=== PATIENT | female | born 2000 | race Caucasian/White ===

== ENCOUNTER 2019-07-21 16:32 | Emergency (ER) | payer SELFPAY ==
[2019-07-21 16:51] VITALS: BP 152/99; PULSE 85; RESP 16; TEMP 36.9; O2SAT 99; BMI 33.6
--- NOTE | 2019-07-21 17:02 | ED_ITS ---
Entered by Earline Jensen, acting as scribe for Wimlan Ortega MD HPI - Wound/Laceration General: Chief Complaint: Wound/Laceration Stated Complaint: hand lac Time Seen by Provider: 07/21/19 17:02 History of Present Illness: HPI narrative: 19 yo female presents with laceration on her left thumb. Pt states that she was cutting a carrot and cut her thumb on accident. Has minimal pain. Onset (ago): hour(s) Place: home Patient tetanus UTD: No Context: accidental Associated symptoms: Reports no associated symptoms; Denies chills, fever(s), nausea or vomiting Review of Systems Const: Denies: fever, chills, body aches or change in appetite Eyes: Denies: blurry vision or eye discomfort ENMT: Denies: throat pain or dental pain Card: Denies: chest pain Resp: Denies: shortness of breath GI: Denies: abdominal pain, nausea, vomiting or diarrhea : Denies: painful urination Musc: Denies: neck pain or back pain Skin/Breast: Denies: rash Neuro: Denies: headache Psych: Denies: depression Darin/Lymph: Denies: easy bruising All/Imm: Denies: hives PFSH ED PFSH: Social History Smoking and tobacco status: never smoked Physical Exam Const: COMMON NORMALS: no apparent distress, oriented x3 and healthy appearing HENMT: COMMON NORMALS: normocephalic and head/scalp atraumatic HEAD & SCALP: normocephalic and atraumatic Eye: COMMON NORMALS: PERRL and EOMs intact bilaterally PUPIL: Yes PERRL Neck/C-Spine: COMMON NORMALS: full ROM and supple Chest: COMMONS NORMALS: inspection of chest normal and palpation of chest normal Resp: COMMON NORMALS: normal respiratory effort, no retractions, no use of accessory muscles and clear to auscultation bilaterally AUSCULTATION: clear to auscultation bilaterally Cardio: COMMON NORMALS: regular rate, regular rhythm and no murmurs RATE: regular rate RHYTHM: regular rhythm GI: COMMON NORMALS: normal to inspection, nondistended, normoactive bowel sounds, soft to palpation, non-tender and no masses PALPATION: Yes soft Extremity: COMMON NORMALS: normal to inspection and full ROM RIGHT UPPER EXTREMITY: Yes hand & digits (1 cm laceration to the tip of left thumb) Neuro: COMMON NORMALS: oriented x3, moves all extremities and no focal motor deficits Psych: COMMON NORMALS: mental status grossly normal, thought process normal and cooperative THOUGHT PROCESS: normal thought process Skin: COMMON NORMALS: no rashes or lesions noted and no wounds GENERAL SKIN EXAM: no rashes or lesions noted Procedures Laceration Laceration 1: Site: upper extremity Side (If applicable): right Size (cm): 1 Description: linear Depth: simple, single layer Pre-repair: wound explored and irrigated extensively Skin layer closed with: other (dermabond) Course Vital Signs: Vital signs: Vital Signs Temperature 98.5 F 07/21/19 16:51 Pulse Rate 85 07/21/19 16:51 Respiratory Rate 16 07/21/19 16:51 Blood Pressure 152/99 07/21/19 16:51 Pulse Oximetry 99 07/21/19 16:51 MDM - Wound/Laceration MDM Narrative: Medical decision making narrative: Patient presents here with a laceration to the tip of her thumb. Laceration was superficial nature and repaired with tissue adhesive. Patient given tetanus here. Patient is stable for discharge and is to return if worsening. Discharge Plan Discharge Patient Disposition: Home, Self-Care Clinical Impression: Laceration Condition: Stable Prescriptions: No Action No Known Home Medications RF: 0 Discharge Orders: Discharge Order (Routine); Ordered 07/21/19 Ordered By: Wilman Ortega Referrals: Melvin Hancock DO [Family Provider] - Paulina Cedeno DO [Primary Care Provider] - 4-7 days Discharge Diet: Advance as tolerated Discharge Activity: Resume usual activity Patient Instructions: Skin Adhesive Care (ED) Coding Level of Care Code ED Life Support Technician for Chg Fwd Exam Comprehensive The documentation recorded by the Mikey vila Kialy, accurately reflects the service I personally performed and the decisions made by Jordan trinidad Korby, MD Jul 21, 2019 16:32
[2019-07-21] MEDS: tetanus-dipt-pertussis 0.5 mL SDV IM (17:24)
[2019-07-21 18:01] VITALS: BP 140/90; PULSE 80; RESP 16; TEMP 36.8; O2SAT 99
== END 2019-07-21 17:30 | disposition home or self-care (01) ==
PROVIDERS: Emergency Provider Emergency Medicine; Family Provider Family Medicine; PCP Family Medicine
DX: S61.012A Laceration without foreign body of left thumb without damage to nail, initial encounter (principal); X58.XXXA Exposure to other specified factors, initial encounter
CPT/HCPCS: 12001; 90471; 90715; 99281; 99282

== ENCOUNTER → 2019-08-14 17:39 | Outpatient (BNVA) | payer SELFPAY | PROVIDERS: Family Provider Family Medicine; PCP Family Medicine; Visit Provider Family Medicine | DX: R50.9 Fever, unspecified (principal) | CPT/HCPCS: 87400 ==

== ENCOUNTER 2020-04-07 04:29 | Emergency (ER) | payer SELFPAY ==
[2020-04-07 04:34] VITALS: BP 132/89; PULSE 129; RESP 16; TEMP 36.8; O2SAT 98; BMI 31.5
--- NOTE | 2020-04-07 04:34 | XRR_ITS ---
PROCEDURE INFORMATION: Exam: XR Right Ankle Exam date and time: 04/07/2020 4:51 AM Age: 20 years old Clinical indication: Injury or trauma; Fall; Sprain or strain; Ankle; Right; Additional info: Fall/injury TECHNIQUE: Imaging protocol: XR Right ankle. Views: 3 or more views. COMPARISON: No relevant prior studies available. FINDINGS: Bones/joints: Normal. Soft tissues: Lateral malleolar soft tissue swelling. XR/XR ankle RT min 3V* [id number] IMPRESSION: No fracture.
--- NOTE | 2020-04-07 04:34 | XRR_ITS ---
PROCEDURE INFORMATION: Exam: XR Right Foot Complete Exam date and time: 04/07/2020 4:51 AM Age: 20 years old Clinical indication: Injury or trauma; Fall; Blunt trauma; Foot; Right; Additional info: Fall/injury TECHNIQUE: Imaging protocol: XR Right foot. Views: 3 or more views. COMPARISON: No relevant prior studies available. FINDINGS: Bones/joints: Normal. Soft tissues: Normal. XR/XR foot RT min 3V* [id number] IMPRESSION: No acute findings.
--- NOTE | 2020-04-07 04:34 | XRR_ITS ---
PROCEDURE INFORMATION: Exam: XR Right Tibia and Fibula Exam date and time: 04/07/2020 4:52 AM Age: 20 years old Clinical indication: Injury or trauma; Fall; Blunt trauma; Lower leg; Right; Additional info: Fall/injury TECHNIQUE: Imaging protocol: XR Right tibia and fibula. Views: 2 views. COMPARISON: No relevant prior studies available. FINDINGS: Bones/joints: Normal. Soft tissues: Normal. XR/XR tibia fibula RT 2V [id number] IMPRESSION: No acute findings.
--- NOTE | 2020-04-07 04:37 | W.ED.GENADLT ---
HPI - General Adult General: Chief complaint: Extremity Injury, Lower Stated complaint: extremity injury, right ankle Time Seen by Provider: 04/07/20 04:31 Source: patient Mode of arrival: ambulatory Limitations: no limitations History of Present Illness: HPI narrative: Nicole is a 20-year-old female who comes in after she fell off her porch twisting her right ankle. She has pain primarily at the lateral malleolus that occasionally radiates up her leg and down to end her foot. She denies any distal numbness, tingling or weakness. She has increased pain when she bears weight. She denies any other injuries. Review of Systems Musc: Reports: extremity pain and joint pain PFSH ED PFSH: Medical History No pertinent past medical history Social History Smoking and tobacco status: never smoked Alcohol intake: never History of recent travel: No Physical Exam Extremity: NARRATIVE EXTREMITY EXAM: Mild swelling over the right lateral malleolus. Neurovascular intact distal. Course Vital Signs: Vital signs: Vital Signs Temperature 98.2 F 04/07/20 04:34 Pulse Rate 129 H 04/07/20 04:34 Respiratory Rate 16 04/07/20 04:34 Blood Pressure 132/89 04/07/20 04:34 Pulse Oximetry 98 04/07/20 04:34 MDM - General Adult MDM Narrative: Medical decision making narrative: Medicines 20-year-old female comes in with right ankle strain. Her x-rays to me look like she could have a Lisfranc injury so I am going to make her nonweightbearing and put her in a splint. I have informed the patient she is to follow-up with Dr. Lui for definitive care. She understands this and will follow-up as directed. Imaging Data^: XR right tib/fib: Attestation: I personally reviewed and interpreted this imaging study as follows: My impression: No acute fractures or dislocations XR right ankle: Attestation: I personally reviewed and interpreted this imaging study as follows: My impression: No acute fractures dislocations XR right foot: Attestation: I personally reviewed and interpreted this imaging study as follows: My impression: No acute fractures or dislocations Discharge Plan Discharge Patient Disposition: Home Clinical Impression: Ankle sprain and strain Right foot strain Qualifiers: Encounter type: initial encounter Qualified Code(s): S96.911A - Strain of unspecified muscle and tendon at ankle and foot level, right foot, initial encounter Condition: Stable Prescriptions: No Action No Known Home Medications RF: 0 Discharge Orders: Discharge Order (Routine); Ordered 04/07/20 Ordered By: Crystal Sams Referrals: Melvin Hancock DO [Family Provider] - Lucy Mojica MD [Physician] - 1-3 days Paulina Cedeno DO [Primary Care Provider] - Discharge Diet: Usual diet Discharge Activity: Limit activity as instructed Patient Instructions: Ankle Sprain (ED) Activity Restrictions/Additional Instructions: Please return to the ER immediately for any of the signs or symptoms listed on your discharge instruction sheets, worsening/changing of your symptoms, you are not getting better as quickly as expected, or for ANY other cause or concerns. Use your crutches and use your splint at all times until instructed further by Dr. Lui. Take Tylenol Motrin as needed for pain. Do not bear any weight on your foot or ankle until cleared by Dr. Lui. Coding Level of Care Code ED Electron Beam Operator for Paola Torres
[2020-04-07] MEDS: ibuprofen 200 mg Tablet 400 MG PO (05:04)
[2020-04-07 05:05] VITALS: BP 123/94; PULSE 114; PULSE 123; RESP 19; O2SAT 98
[2020-04-07] MEDS: ondansetron 4 MG Tablet 8 MG PO (05:43)
[2020-04-07] MEDS: acetaminophen 500 mg Tablet 1000 MG PO (05:44)
[2020-04-07 06:23] VITALS: BP 121/85; PULSE 98; O2SAT 99
== END 2020-04-07 06:23 | disposition home or self-care (01) ==
PROVIDERS: Emergency Provider Emergency Medicine; Family Provider Family Medicine; PCP Family Medicine
DX: S96.911A Strain of unspecified muscle and tendon at ankle and foot level, right foot, initial encounter (principal); S93.401A Sprain of unspecified ligament of right ankle, initial encounter; X50.1XXA Overexertion from prolonged static or awkward postures, initial encounter
CPT/HCPCS: 12345; 29515; 73590; 73610; 73630; 99281; 99283; E0114; Q0162

== ENCOUNTER 2020-04-11 10:56 | Outpatient (CLI) | payer SELFPAY | END 2020-04-11 10:57 | disposition home or self-care (01) | LOC: SPT 10:59 | PROVIDERS: Family Provider Family Medicine; PCP Family Medicine; Visit Provider Podiatrist Foot & Ankle Surgery | DX: Z46.89 Encounter for fitting and adjustment of other specified devices (principal); S93.409D Sprain of unspecified ligament of unspecified ankle, subsequent encounter; X58.XXXD Exposure to other specified factors, subsequent encounter | CPT/HCPCS: L4361 ==

== ENCOUNTER 2020-04-21 07:53 | Emergency (ER) | payer SELFPAY ==
[2020-04-21 08:01] VITALS: BP 142/108; PULSE 80; RESP 15; TEMP 36.4; O2SAT 97; BMI 31.5
--- NOTE | 2020-04-21 08:02 | XRR_ITS ---
PROCEDURE INFORMATION: Exam: XR Left Foot Complete Exam date and time: 04/21/2020 8:03 AM Age: 20 years old Clinical indication: Pain; Foot; Left TECHNIQUE: Imaging protocol: XR Left foot. Views: 3 or more views. COMPARISON: No relevant prior studies available. FINDINGS: Bones/joints: Normal. Soft tissues: Normal. XR/XR foot LT min 3V* [id number] IMPRESSION: No acute findings.
--- NOTE | 2020-04-21 08:02 | XRR_ITS ---
PROCEDURE INFORMATION: Exam: XR Left Ankle Exam date and time: 04/21/2020 8:03 AM Age: 20 years old Clinical indication: Pain; Ankle; Left TECHNIQUE: Imaging protocol: XR Left ankle. Views: 3 or more views. COMPARISON: No relevant prior studies available. FINDINGS: Bones/joints: Normal. Soft tissues: There is mild soft tissue swelling over the lateral aspect but this has decreased since previous examination.. XR/XR ankle LT min 3V* [id number] IMPRESSION: No acute findings.
--- NOTE | 2020-04-21 08:14 | ED_ITS ---
HPI - Extremity Problem General: Chief complaint: Extremity Injury, Lower Stated complaint: Left ankle pain w/o known [place] Time Seen by Provider: 04/21/20 08:00 Source: patient Mode of arrival: ambulatory Limitations: no limitations History of Present Illness: HPI Narrative: Nicole is a nice 20-year-old female who comes in complaining of left foot and ankle pain. Patient states that she felt fine but then when she went to get up out of bed this morning she had sudden onset of pain in her medial left foot that radiates up into her ankle. Patient is unaware of any definitive injury other than it just hurt when she stepped down today. She is able to bear weight and ambulate although with pain. Patient denies any distal numbness or weakness of her ankle. She has full range of motion of her ankle and foot although with mild pain. There is been no swelling, redness of the skin or other problem that she is aware of. Associated symptoms: Deny chest pain, fever(s) or rash Review of Systems Const: Denies: fever(s), chills, body aches, fatigue, malaise or diaphoresis Eyes: Denies: change in vision, blurry vision, photophobia, eye discomfort, eye discharge, eye redness or yellow eyes ENMT: Denies: throat pain, odynophagia, hoarseness, swelling of lips/tongue, ear or mastoid pain, ear discharge, change in hearing or nasal discharge Card: Denies: chest pain, palpitations, irregular heart rhythm, edema, lightheadedness, syncope, pre-syncope, dyspnea on exertion or orthopnea Resp: Denies: dyspnea, productive cough, non-productive cough, wheezing, hemoptysis or chest congestion GI: Denies: abdominal pain, nausea, vomiting, hematemesis, coffee ground emesis, heartburn, diarrhea, constipation, GI cramping, hematochezia or melena : Denies: flank pain, dysuria, urinary frequency, urinary urgency or hematuria Musc: Reports: extremity pain and joint pain Skin/Breast: Denies: rash, pruritus, erythema, skin pain or skin tenderness Neuro: Denies: headache(s), numbness in extremities, weakness in extremities, sensory changes, lack of coordination, difficulty walking, dizziness, vertigo, confusion, Slurred speech present or seizure-like activity Darin/Lymph: Denies: easy bruising, easy bleeding, petechiae, purpura or enlarged lymph nodes All/Imm: Denies: urticaria, throat swelling, tongue swelling, facial swelling or acute wheezing PFSH ED PFSH: Medical History (Updated 04/21/20 @ 09:12 by Crystal Sams) No pertinent past medical history Social History Smoking and tobacco status: never smoked Alcohol intake: never History of recent travel: No Physical Exam Const: COMMON NORMALS: no acute distress, patient oriented x3, no limitations and alert GENERAL APPEARANCE: cooperative HENMT: COMMON NORMALS: normocephalic, atraumatic, external ears normal, EAC's normal and Normal external nose present HEAD & SCALP: normal to inspection, normocephalic and atraumatic FACE & SINUS: normal facial exam and face symmetric NOSE: Normal external nose present and Normal nares present EXTERNAL EAR: Yes external ears normal EXTERNAL AUDITORY CANAL: EAC's normal MOUTH: Normal oral and palatal mucosa present, lip normal and tongue normal Eye: COMMON NORMALS: Equal, round and reactive pupils present and conjunctivae normal GENERAL EYE: appearance normal, both eyes and all related structures ALIGNMENT: Yes alignment normal PERIORBITAL: periorbital findings normal EYELID: eyelids normal CONJUNCTIVA: Yes conjunctivae normal SCLERA: sclerae normal PUPIL: Yes Equal, round and reactive pupils present Neck/C-Spine: COMMON NORMALS: full ROM, no lymphadenopathy, supple, no meningeal signs and no JVD GENERAL: Yes normal visual inspection and Yes trachea midline Chest: COMMONS NORMALS: normal inspection of the chest and normal palpation of entire chest wall Resp: COMMON NORMALS: normal respiratory effort, No retractions, No use of accessory muscles and clear to auscultation bilaterally EFFORT & INSPECTION: Yes able to speak in complete sentences and Yes symmetric chest movement AUSCULTATION: clear to auscultation bilaterally, no crackles, no rales, no rhonchi and no wheezes Cardio: COMMON NORMALS: no JVD, regular rate, regular rhythm, S1 normal heart sound present and S2 normal heart sound present RATE: regular rate RHYTHM: regular rhythm HEART SOUNDS: S1 normal heart sound present, S2 normal heart sound present, no click, no gallops, no murmurs and no rubs GI: COMMON NORMALS: Soft to palpation and No hepatosplenomegaly present PALPATION: Yes Soft to palpation, No Tenderness to palpation present (GI), No Guarding due to palpation present (GI), No Rigid due to palpation, Yes No hepatosplenomegaly present, No Hernia present, No Palpable mass present and No Pulsatile mass present : COMMON NORMALS: Yes no CVA tenderness BLADDER/KIDNEY EXAM: Yes no CVA tenderness EXTERNAL FEMALE EXAM: No Hernia present Back/Pelvis: COMMON NORMALS: no CVA tenderness, thoracic and lumbar spine normal to inspection, no thoracic nor lumbar tenderness and thoraco-lumbar ROM normal Extremity: NARRATIVE EXTREMITY EXAM: Left foot and ankle without swelling, erythema or warmth to the touch. Strong dorsalis pedis and posterior tibial pulse to the left foot and ankle. Capillary refill is normal. Pain seems to be more focal along the medial foot. Full range of motion of the ankle with a normal Achilles mechanism. Remainder of patient's musculoskeletal exam is unremarkable. Right foot and ankle were not examined as they are in a cam walker. Neuro: COMMON NORMALS: patient oriented x3, CN's II-XII intact bilaterally, moves all extremities, no focal motor deficits and no sensory deficits noted SENSORIUM/ORIENTATION: Yes alert MENINGEAL SIGNS: Yes no meningeal signs SPEECH: speech normal Psych: COMMON NORMALS: mental status grossly normal, Normal thought process present, cooperative, normal affect, speech normal and activity/motor behavior normal SPEECH: Yes normal speech THOUGHT PROCESS: Normal thought process present Skin: COMMON NORMALS: no rashes or lesions noted, turgor normal, no jaundice, no petechiae and no mottling GENERAL SKIN EXAM: no rashes or lesions noted and turgor normal Course Vital Signs: Vital signs: Vital Signs Temperature 97.6 F 04/21/20 08:01 Pulse Rate 80 04/21/20 08:01 Respiratory Rate 15 04/21/20 08:01 Blood Pressure 142/108 04/21/20 08:01 Pulse Oximetry 97 04/21/20 08:01 MDM - Extremity (Nontraumatic) MDM Narrative: Medical decision making narrative: Patient describes most of her pain is in the Achilles tendon area of her foot. I do not palpate a sig nificant deficit. With Sierra's testing squeezing her calf causes normal plantar flexion of the foot and ankle. I reviewed the case in full with Dr. Loaiza who believes the patient will need to be placed in a posterior splint, made nonweightbearing, use her crutches and follow-up with Dr. Simons for further care. I have reviewed all this plan with the patient and she is in agreement. Imaging Data^: XR Left Ankle: Attestation: I personally reviewed and interpreted this imaging study as follows: My impression: No acute fractures dislocations XR Left Foot: Attestation: I personally reviewed and interpreted this imaging study as follows: My impression: No acute fractures or dislocations Discharge Plan Discharge Patient Disposition: Home Clinical Impression: Strain of Achilles tendon Qualifiers: Encounter type: initial encounter Laterality: left Qualified Code(s): S86.012A - Strain of left Achilles tendon, initial encounter Condition: Stable Prescriptions: No Action hydrocodone-acetaminophen [[place]] 5-325 mg tablet 1 tab PO Q6H PRN (Reason: pain) 7 Days Qty: 14 RF: 0 (DME) cam boot See Rx Instructions .Route .MEDSUPPLY Qty: 1 RF: 0 Discharge Orders: Discharge Order (Routine); Ordered 04/21/20 Ordered By: Crystal Sams Referrals: Jamie Loaiza DO [Physician] - 1-3 days Gregorio Simons DPM [Physician] - 1-3 days Paulina Cedeno DO [Primary Care Provider] - Discharge Diet: Advance as tolerated Discharge Activity: Use walker/crutches as instructed Patient Instructions: Ankle Sprain (ED), Achilles Tendon Rupture (ED), Achilles Tendinitis (ED) Activity Restrictions/Additional Instructions: Please return to the ER immediately for any of the signs or symptoms listed on your discharge instruction sheets, worsening/changing of your symptoms, you are not getting better as quickly as expected, or for ANY other cause or concerns. Use your crutches at all times and do not bear weight on your left foot or ankle. Continue the pain medication you already have at home for pain. You can follow-up with Dr. Loaiza or you can follow-up with Dr. Simons who you have already established with us he can care for this injury as well. Coding Level of Care Code ED Marketing Communications Specialist for dorie Fwd Exam Comprehensive
--- NOTE | 2020-04-21 09:57 | PC.NURSE ---
Visitor complained that nobody asked her about her pain . Patient asked rate pain on 0-10 pain scale. Patient states I'm fine . Patient offered medication for pain. She refused.
== END 2020-04-21 10:05 | disposition home or self-care (01) ==
PROVIDERS: Emergency Provider Emergency Medicine; PCP Family Medicine
DX: S86.012A Strain of left Achilles tendon, initial encounter (principal); X58.XXXA Exposure to other specified factors, initial encounter
CPT/HCPCS: 12345; 29515; 73610; 73630; 99283; E0114

== ENCOUNTER 2020-09-02 06:21 | Emergency (ER) | payer SELFPAY ==
[2020-09-02 06:24] VITALS: BP 146/82; PULSE 83; RESP 16; TEMP 36.9; O2SAT 98; BMI 29.8
--- NOTE | 2020-09-02 06:34 | ED_ITS ---
HPI - Extremity Problem General: Chief complaint: Extremity Injury, Upper Stated complaint: r hand injury Time Seen by Provider: 09/02/20 06:33 History of Present Illness: HPI Narrative: 20-year-old female presents emergency room with complaint of right hand pain. She smashed her hand in a door last evening. She has a bruising on the dorsum of the right hand is hesitant to flex her fingers. She denies any other injuries. There are some moderate swelling but no obvious deformity. MD Complaint: extremity pain and extremity swelling Onset (ago): hour(s) Pain Consistency: constant Location: right and upper extremity (Hand metacarpals) Quality: aching Radiation: none Relieving factors: immobilization and rest Exacerbating factors: range of motion and palpation Associated symptoms: Reports no associated symptoms; Deny arthralgias, chest pain, fever(s), myalgias, rash or short of breath Review of Systems Const: Denies: fever(s) ENMT: Denies: throat pain, ear or mastoid pain, nasal discharge or nasal congestion Card: Denies: chest pain Resp: Denies: dyspnea, productive cough or non-productive cough GI: Denies: abdominal pain, nausea, vomiting, diarrhea or constipation : Denies: flank pain, difficulty voiding, dysuria, urinary frequency or urinary urgency Skin/Breast: Denies: rash PFSH ED PFSH: Medical History (Updated 09/02/20 @ 06:48 by Melvin Hancock DO) No pertinent past medical history Social History Smoking and tobacco status: never smoked Alcohol intake: never History of recent travel: No Physical Exam Const: COMMON NORMALS: no acute distress GENERAL APPEARANCE: cooperative and comfortable ORIENTATION/CONSCIOUSNESS: Yes awake, Yes oriented to person, Yes oriented to place and Yes oriented to time HENMT: COMMON NORMALS: normocephalic, atraumatic and hearing grossly normal bilaterally HEAD & SCALP: normocephalic and atraumatic Neck/C-Spine: COMMON NORMALS: no JVD Resp: COMMON NORMALS: normal respiratory effort, No retractions, No use of ac cessory muscles and clear to auscultation bilaterally AUSCULTATION: clear to auscultation bilaterally Cardio: COMMON NORMALS: no JVD, regular rate, regular rhythm and No murmurs present (Cardio) RATE: regular rate RHYTHM: regular rhythm Extremity: NARRATIVE EXTREMITY EXAM: 2 inch round area of swelling and ecchymosis on dorsum of the right hand. 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 Radial and ulnar pulses are normal good capillary refill there is no obvious deformity no crepitus on light palpation Neuro: SENSORIUM/ORIENTATION: Yes oriented to person, Yes oriented to place and Yes oriented to time Course Vital Signs: Vital signs: Vital Signs Temperature 98.4 F 09/02/20 06:24 Pulse Rate 83 09/02/20 06:24 Respiratory Rate 16 09/02/20 06:24 Blood Pressure 146/82 09/02/20 06:24 Pulse Oximetry 98 09/02/20 06:24 MDM - Extremity (Nontraumatic) MDM Narrative: Medical decision making narrative: No acute fractures. Ice [id number] anti-inflammatories increase activity as tolerated Discharge Plan Discharge Patient Disposition: Home Clinical Impression: Contusion of hand, right Condition: Stable Prescriptions: No Action hydrocodone-acetaminophen [[place]] 5-325 mg tablet 1 tab PO Q6H PRN (Reason: pain) 7 Days Qty: 14 RF: 0 (DME) cam boot See Rx Instructions .Route .MEDSUPPLY Qty: 1 RF: 0 Discharge Orders: Discharge ED (Routine); Ordered 09/02/20 Ordered By: Melvin Hancock Referrals: Paulina Cedeno DO [Primary Care Provider] - Patient Instructions: Opioid Safety Activity Restrictions/Additional Instructions: Ice to the affected hand. [id number] anti-inflammatories as needed increase activity as tolerated. Coding Level of Care Code ED Research Geologist for Lyndag Fwd Exam Detailed
--- NOTE | 2020-09-02 06:34 | XRR_ITS ---
PROCEDURE INFORMATION: Exam: XR Right Hand Exam date and time: 09/02/2020 6:36 AM Age: 20 years old Clinical indication: Pain and injury or trauma; Other: Smashed in medtal marta; Crushing; Hand; Right; Injury date: 09/01/20 TECHNIQUE: Imaging protocol: XR Right hand. Views: 3 or more views. COMPARISON: No relevant prior studies available. FINDINGS: Bones/joints: Normal. Soft tissues: Normal. XR/XR hand RT min 3V* [id number] IMPRESSION: No acute findings.
[2020-09-02 06:53] VITALS: BP 146/82; PULSE 78; RESP 16; TEMP 36.9; O2SAT 98
== END 2020-09-02 06:54 | disposition home or self-care (01) ==
PROVIDERS: Emergency Provider Family Medicine; PCP Family Medicine
DX: S60.221A Contusion of right hand, initial encounter (principal); W23.0XXA Caught, crushed, jammed, or pinched between moving objects, initial encounter
CPT/HCPCS: 73130; 99282

== ENCOUNTER 2020-11-21 11:20 | Inpatient (IN) | payer SELFPAY ==
[2020-11-21 11:31] VITALS: BP 165/103; PULSE 129; RESP 20; TEMP 36.5; O2SAT 94; BMI 31.1
--- NOTE | 2020-11-21 11:36 | ECG_ITS ---
[facility] Test Date: 2020-11-21 Pat Name: Nicole Terrazas Department: Room: Gender: Female Direct Marketing Coordinator: : 2000 Requested By: Raudel Aguilar Order Number: [id number] Thorne MD: Sophie Hill M.D. Measurements Intervals [place] Rate: 122 P: 24 GA: 142 QRS: -10 QRSD: 86 T: 10 QT: 338 QTc: 482 Interpretive Statements SINUS TACHYCARDIA VOLTAGE CRITERIA FOR LVH [MEETS CRITERIA IN ONE OF: R(aVL), S(V1), R(V5), R(V5/V6)+S(V1)] No previous ECG available for comparison Electronically Signed On 11-22-2020 14:17:23 CDT by Sophie Hill M.D. [email or web address]
--- NOTE | 2020-11-21 11:38 | W.ED.PSYCH ---
HPI - Psych General: Chief Complaint: Psychiatric Symptoms Stated Complaint: MHE Time Seen by Provider: 11/21/20 11:28 History of Present Illness: HPI Narrative: The patient is a 20-year-old female with past medical history depression and history of cutting and burning herself. She says she feels like hurting herself today. She has made no attempt at doing so and has no current plan. She is tearful and sad. She says her mother called the police on her after she found her walking out on a highway. Admits alcohol use 12 hours ago complaint: suicidal ideation and feels depressed Duration: constant History of same: Yes Relieving factors: none Context: not taking psychiatric medications Associated psychiatric symptoms: depression and suicidal ideation Associated symptoms: Reports no associated symptoms, depression and suicidal ideation; Deny auditory hallucinations, visual hallucinations or homicidal ideation If self harm: admits thoughts of self harm Review of Systems General: Reports: 10 or more systems reviewed and unremarkable except in HPI and below Const: Denies: fatigue Eyes: Denies: change in vision, blurry vision or eye redness ENMT: Denies: throat pain, swelling of lips/tongue, ear or mastoid pain or nasal congestion Card: Denies: chest pain, palpitations, irregular heart rhythm, edema, dyspnea on exertion or orthopnea Resp: Denies: dyspnea, productive cough or non-productive cough GI: Denies: abdominal pain, diarrhea or GI cramping : Denies: flank pain, difficulty voiding, urinary frequency or urinary urgency Musc: Denies: neck pain, back pain, extremity pain, joint pain, joint redness, limited range of motion or muscle weakness Skin/Breast: Denies: rash, pruritus, erythema, skin pain or skin tenderness Neuro: Denies: headache(s), numbness in extremities, weakness in extremities, sensory changes, difficulty walking, dizziness, confusion or Slurred speech present Psych: Reports: depression and suicidal ideation; Denies: anxiety, visual hallucinations, auditory hallucinations or homicidal ideation Endo: Denies: polyuria All/Imm: Denies: urticaria, throat swelling or tongue swelling PFS ED PFSH: Medical History (Updated 11/21/20 @ 14:07 by Raudel Aguilar MD) No pertinent past medical history Social History Smoking and tobacco status: never smoked Alcohol intake: never History of recent travel: No Physical Exam Const: COMMON NORMALS: no acute distress, average body habitus, patient oriented x3, no limitations, healthy appearing, alert and well nourished GENERAL APPEARANCE: cooperative, comfortable, well kempt, well developed and anxious ORIENTATION/CONSCIOUSNESS: Yes awake, Yes oriented to person, Yes oriented to place and Yes oriented to time OTHER: Tearful HENMT: COMMON NORMALS: normocephalic, external ears normal and Normal external nose present HEAD & SCALP: normal to inspection and normocephalic NOSE: Normal external nose present EXTERNAL EAR: Yes external ears normal MOUTH: Normal oral and palatal mucosa present THROAT: posterior oropharynx normal Eye: COMMON NORMALS: Equal, round and reactive pupils present and EOMs intact bilaterally GENERAL EYE: appearance normal, both eyes and all related structures PUPIL: Yes Equal, round and reactive pupils present Neck/C-Spine: COMMON NORMALS: full ROM, no lymphadenopathy, no meningeal signs and no JVD GENERAL: Yes normal visual inspection Lymph: LYMPHATIC: no lymphadenopathy noted Chest: COMMONS NORMALS: normal inspection of the chest and normal palpation of entire chest wall Resp: COMMON NORMALS: normal respiratory effort, No retractions, No use of accessory muscles, clear to auscultation bilaterally and percussion normal EFFORT & INSPECTION: Yes able to speak in complete sentences AUSCULTATION: clear to auscultation bilaterally PERCUSSION: percussion normal Cardio: COMMON NORMALS: no JVD, regular rate, regular rhythm, S1 normal heart sound present, S2 normal heart sound present and Peripheral pulses 2+ throughout RATE: regular rate RHYTHM: regular rhythm HEART SOUNDS: S1 normal heart sound present and S2 normal heart sound present PERIPHERAL PULSES: Peripheral pulses 2+ throughout GI: COMMON NORMALS: Normal to inspection, nondistended, normoactive bowel sounds present, Soft to palpation, non-tender and no masses INSPECTION: Yes normal to inspection PALPATION: Yes Soft to palpation : COMMON NORMALS: Yes no CVA tenderness BLADDER/KIDNEY EXAM: Yes no CVA tenderness Back/Pelvis: COMMON NORMALS: no CVA tenderness, thoracic and lumbar spine normal to inspection, no thoracic nor lumbar tenderness and thoraco-lumbar ROM normal Extremity: COMMON NORMALS: normal to inspection, full ROM, capillary refill normal, no joint enlargement and no pedal edema GENERAL: Yes normal exam except as noted Neuro: COMMON NORMALS: patient oriented x3, CN's II-XII intact bilaterally, moves all extremities, no focal motor deficits, no sensory deficits noted and gait normal SENSORIUM/ORIENTATION: Yes alert, Yes oriented to person, Yes oriented to place and Yes oriented to time MENINGEAL SIGNS: Yes no meningeal signs Psych: COMMON NORMALS: mental status grossly normal, Normal thought process present, cooperative, normal affect and speech normal APPEARANCE: Yes well kempt ATTITUDE: Yes calm SPEECH: Yes normal speech MOOD & AFFECT: Yes depressed mood and Yes anxious THOUGHT PROCESS: Normal thought process present THOUGHT CONTENT: Yes Suicidality present INSIGHT: Poor insight present (Psych) JUDGEMENT: Poor judgement present (Psych) Skin: COMMON NORMALS: no rashes or lesions noted NARRATIVE SKIN EXAM: Patient has old scars from cutting herself to her left forearm. Approximately 20 in number GENERAL SKIN EXAM: no rashes or lesions noted Course Vital Signs: Vital signs: Vital Signs Temperature 97.7 F 11/21/20 11:31 Pulse Rate 102 H 11/21/20 13:55 Respiratory Rate 16 11/21/20 13:55 Blood Pressure 107/88 11/21/20 13:55 Pulse Oximetry 97 11/21/20 13:55 MDM - Psych MDM Narrative: Medical decision making narrative: The patient is suicidal. I wrote 96-hour papers on her. She also has ingested alcohol. Discussed with Dr. Fung who accepts to the Neuropsych Unit Lab Data: Labs: Lab Results 11/21/20 11/21/20 11/21/20 Range/Units 12:05 12:10 12:10 WBC 6.6 (4.0-10.0) 10^3/ uL RBC 4.50 (4.1-5.3) 10^6/u L Hgb 13.9 (11.5-15.3) g/dL Hct 41.7 (37.0-47.0) % MCV 92.7 (81-99) fL MCH 30.9 (28.0-34.0) pg MCHC 33.3 (30.0-36.0) g/dL RDW 11.8 L (12.1-15.1) % Plt Count 383 (130-400) 10^3/c mm MPV 9.4 (7.4-10.4) fL Neut % (Auto) 52.2 % Lymph % (Auto) 38.2 % [place] % (Auto) 7.7 % Eos % (Auto) 1.1 % Baso % (Auto) 0.6 % Neut # (Auto) 3.44 (1.8-7.7) 10^3/u L Lymph # (Auto) 2.5 (0.8-4.8) 10^3/u L [place] # (Auto) 0.5 (0.2-0.9) 10^3/u L Eos # (Auto) 0.1 (0.0-0.8) 10^3/u L Baso # (Auto) 0.0 (0.0-0.1) 10^3/u L Nucleated RBC % (a uto) 0 % Nucleated RBCs # 0.0 /100WBC Sodium 142 (136-145) mmol/L Potassium 4.1 (3.5-5.1) mmol/L Chloride 108 H (98-107) mmol/L Carbon Dioxide 22 (22-29) mmol/L Anion Gap 16.1 (5-19) BUN 15 (6-20) mg/dL Creatinine 0.6 (0.5-0.9) mg/dL GFR Calculation 126.2 (90-130) mL/min Glucose 106 (65-115) mg/dL Calculated Osmolal ity 295 (285-295) mOsm/k g Calcium 9.3 (8.5-10.5) mg/dL Total Bilirubin 0.3 (0.15-1.2) mg/dL AST 19 (0-32) U/L ALT 21 (0-33) U/L Alkaline Phosphata se 77 (35-105) IU/L Troponin T Baselin e (0-10) ng/L Total Protein 7.0 (6.6-8.7) g/dL Albumin 4.7 (3.5-5.2) g/dL Globulin 2.3 (1.3-4.6) g/dL TSH 1.74 (0.27-4.20) uIU/ mL HCG, Qual Negative (Negative) Urine Color (Yellow) Urine Appearance (CLEAR) Urine pH (5-7) Ur Specific Gravit y (1.005-1.030) Urine Protein (Negative) Urine Glucose (UA) (Normal) Urine Ketones (Negative) Urine Blood (Negative) Urine Nitrate (Negative) Urine Bilirubin (Negative) Urine Urobilinogen (Negative) mg/dL Ur Leukocyte Awa ase (Negative) Salicylates < 0.3 L (3-10) mg/dL Urine Opiates Scre en (Negative) ng/mL Acetaminophen < 5.0 L (10-30) ug/mL Ur Barbiturates Sc reen (Negative) ng/mL Ur Phencyclidine S crn (Negative) ng/mL Ur Amphetamines Sc reen (Negative) ng/mL U Benzodiazepines Scrn (Negative) ng/mL Urine Cocaine Scre en (Negative) ng/mL U Marijuana (THC) Screen (Negative) ng/mL Ethyl Alcohol 180 H (0-10) mg/dL 11/21/20 11/21/20 11/21/20 Range/Units 12:10 12:10 12:10 WBC (4.0-10.0) 10^3/ uL RBC (4.1-5.3) 10^6/u L Hgb (11.5-15.3) g/dL Hct (37.0-47.0) % MCV (81-99) fL MCH (28.0-34.0) pg MCHC (30.0-36.0) g/dL RDW (12.1-15.1) % Plt Count (130-400) 10^3/c mm MPV (7.4-10.4) fL Neut % (Auto) % Lymph % (Auto) % [place] % (Auto) % Eos % (Auto) % Baso % (Auto) % Neut # (Auto) (1.8-7.7) 10^3/u L Lymph # (Auto) (0.8-4.8) 10^3/u L [place] # (Auto) (0.2-0.9) 10^3/u L Eos # (Auto) (0.0-0.8) 10^3/u L Baso # (Auto) (0.0-0.1) 10^3/u L Nucleated RBC % (a uto) % Nucleated RBCs # /100WBC Sodium (136-145) mmol/L Potassium (3.5-5.1) mmol/L Chloride (98-107) mmol/L Carbon Dioxide (22-29) mmol/L Anion Gap (5-19) BUN (6-20) mg/dL Creatinine (0.5-0.9) mg/dL GFR Calculation (90-130) mL/min Glucose (65-115) mg/dL Calculated Osmolal ity (285-295) mOsm/k g Calcium (8.5-10.5) mg/dL Total Bilirubin (0.15-1.2) mg/dL AST (0-32) U/L ALT (0-33) U/L Alkaline Phosphata se (35-105) IU/L Troponin T Baselin e 6 (0-10) ng/L Total Protein (6.6-8.7) g/dL Albumin (3.5-5.2) g/dL Globulin (1.3-4.6) g/dL TSH (0.27-4.20) uIU/ mL HCG, Qual (Negative) Urine Color Straw (Yellow) Urine Appearance Clear (CLEAR) Urine pH 5 (5-7) Ur Specific Gravit y 1.020 (1.005-1.030) Urine Protein Trace (Negative) Urine Glucose (UA) Norm (Normal) Urine Ketones Negative (Negative) Urine Blood Neg (Negative) Urine Nitrate Negative (Negative) Urine Bilirubin Neg (Negative) Urine Urobilinogen Norm (Negative) mg/dL Ur Leukocyte Awa ase Negative (Negative) Salicylates (3-10) mg/dL Urine Opiates Scre en Positive H (Negative) ng/mL Acetaminophen (10-30) ug/mL Ur Barbiturates Sc reen Negative (Negative) ng/mL Ur Phencyclidine S crn Negative (Negative) ng/mL Ur Amphetamines Sc reen Negative (Negative) ng/mL U Benzodiazepines Scrn Positive H (Negative) ng/mL Urine Cocaine Scre en Negative (Negative) ng/mL U Marijuana (THC) Screen Positive H (Negative) ng/mL Ethyl Alcohol (0-10) mg/dL Discharge Plan Discharge Patient Disposition: Admitted As Inpatient Admit Provider: Hubert Fung Clinical Impression: Suicidal ideation Condition: Stable Coding Level of Care Code ED Whiting Machine Operator for Paola Fwd Exam Comprehensive
[2020-11-21] MEDS: LORazepam 0.5 mg Tablet PO (11:50)
[2020-11-21 12:15] LABS: Add Urine Microscopic? NO; Charge for UA Resulting for Rev
[2020-11-21 12:17] LABS: Basophils % 0.6 %; Eosinophils # 0.1 10^3/uL (0.0-0.8); Eosinophils % 1.1 %; Hematocrit 41.7 % (37.0-47.0); Hemoglobin 13.9 g/dL (11.5-15.3); Lymphocytes # 2.5 10^3/uL (0.8-4.8); Lymphocytes % 38.2 %; Mean Corpuscular HGB Conc 33.3 g/dL (30.0-36.0); Mean Corpuscular Hemoglobin 30.9 pg (28.0-34.0); Mean Corpuscular Volume 92.7 fL (81-99); Mean Platelet Volume 9.4 fL (7.4-10.4); Monocytes # 0.5 10^3/uL (0.2-0.9); Monocytes % 7.7 %; Neutrophils # 3.44 10^3/uL (1.8-7.7); Neutrophils % 52.2 %; Nucleated Red Blood Cells % 0 %; Platelet Count 383 10^3/cmm (130-400); Red Cell Distribution Width 11.8 % (12.1-15.1); White Blood Count 6.6 10^3/uL (4.0-10.0)
[2020-11-21 12:19] LABS: HCG Qualitative Urine. Negative (Negative)
--- NOTE | 2020-11-21 12:25 | PC.PHAR ---
pt states she takes care of her own medications-pt states she hasnt taken her prozac for 5-6 months ext med history shows last filled on 04/12/2020 30d/s
[2020-11-21 12:34] LABS: Amphetamines Screen Urine Negative (Negative); Barbiturates Screen Urine Negative (Negative); Benzodiazepines Screen Urine Positive (Negative); Bilirubin Urine Neg (Negative); Blood Urine Neg (Negative); Cocaine Screen Urine Negative (Negative); Glucose Urine UA Norm (Normal); Ketones Urine Negative (Negative); Leukocyte Esterase Urine Negative (Negative); Nitrate Urine Negative (Negative); Opiate Screen Urine Positive (Negative); PCP Screen Urine Negative (Negative); Protein Urine Trace (Negative); THC Screen Urine Positive (Negative); Urine Appearance Clear (CLEAR); Urine Color Straw (Yellow); Urobilinogen Urine Norm (Negative); pH Urine 5 (5-7)
[2020-11-21 12:40] VITALS: RESP 15
[2020-11-21 12:50] LABS: Troponin(5th) Baseline 6 ng/L (0-10)
[2020-11-21 12:56] LABS: Acetaminophen < 5.0 ug/mL (10-30); Alanine Aminotransferase 21 U/L (0-33); Albumin Level 4.7 g/dL (3.5-5.2); Alcohol Level 180 mg/dL (0-10); Alkaline Phosphatase 77 IU/L (35-105); Aspartate Amino Transferase 19 U/L (0-32); Blood Urea Nitrogen 15 mg/dL (6-20); Calcium 9.3 mg/dL (8.5-10.5); Carbon Dioxide 22 mmol/L (22-29); Chloride 108 mmol/L (98-107); Globulin 2.3 g/dL (1.3-4.6); Glomerular Filtration Rate 126.2 mL/min (90-130); Glucose 106 mg/dL (65-115); Osmolality Calculated 295 mOsm/kg (285-295); Salicylate < 0.3 mg/dL (3-10); Sodium 142 mmol/L (136-145); Thyroid Stimulating Hormone 1.74 uIU/mL (0.27-4.20); Total Bilirubin 0.3 mg/dL (0.15-1.2)
[2020-11-21 12:57] LABS: Anion Gap 16.1 (5-19); Potassium 4.1 mmol/L (3.5-5.1)
[2020-11-21 13:55] VITALS: BP 107/88; PULSE 102; RESP 16; O2SAT 97
[2020-11-21 14:17] VITALS: BP 126/74; PULSE 95; RESP 18; TEMP 37.1; O2SAT 96
--- NOTE | 2020-11-21 20:20 | PC.NURSE ---
behavior pt has isolated, then began to pace the halls, was redirected, distracted by a book to read, she is anxious, states, she has not seen a doctor, and wants to know why she is here. pt is wringing her shirt with her hands, has a look of fear on her face.pt comforted, educated, and seems less anxious, states, I don't want medication but can not account for days at a time, and says this has increased lately. Tearful and anxious
[2020-11-21 21:40] VITALS: BP 108/73; PULSE 89; RESP 17; TEMP 36.8; O2SAT 97
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
--- NOTE | 2020-11-22 01:17 | PC.NURSE ---
Addendum entered by Poonam Jacques RN 11/22/20 02:02: Pt is less anxious, putting a puzzle together, no longer tearful Original Note: Visteril Pt is anxious,tearful, crying, and physically shaking. Took the medication and informtion to the patient, allowed her to unwrap it, and compare it to information sheet provided, Pt took the medication, and decided she would like to shower. Visteril 50mg Po for anxiety administered.
--- NOTE | 2020-11-22 01:19 | PC.NURSE ---
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 She is upset about the 96hr hold and what that could mean for her career. Pt believes, She is in so much trouble, contacting her employer is necessary as soon as possible. [facility], [address] [address]
[2020-11-22 06:00] VITALS: BP 118/80; PULSE 60; RESP 16; TEMP 36.8; O2SAT 98
[2020-11-22] MEDS: acetaminophen 325 mg Tablet 650 MG PO ×3 (06:19→21:56)
--- NOTE | 2020-11-22 09:02 | PC.NURSE ---
contact added Added Mother to contact list. Manjit Fung has been added
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
--- NOTE | 2020-11-22 12:46 | PC.NURSE ---
prn ] 1233 administered 650 mg Tylenol for pt c/o pain 3/10 on pain scale. Will continue to monitor pt.
[2020-11-22] MEDS: ARIPiprazole 10 mg Tablet PO (13:13)
[2020-11-22 14:00] VITALS: BP 120/82; PULSE 66; RESP 18; TEMP 36; O2SAT 98
[2020-11-22 20:13] VITALS: RESP 16
[2020-11-22] MEDS: hyDROXYzine 25 mg Capsule 50 MG PO (21:38)
[2020-11-22] MEDS: OLANZapine 5 mg ODT PO (21:39)
--- NOTE | 2020-11-22 21:45 | PC.NURSE ---
Patient C/O anxiety R/T, AH. Vistaril 50mg PO given as well as Zyprexa 5mg PO.
[2020-11-23 06:00] VITALS: BP 127/87; PULSE 92; RESP 16; TEMP 36.8; O2SAT 99
[2020-11-23] MEDS: acetaminophen 325 mg Tablet 650 MG PO ×2 (06:20→10:50)
[2020-11-23] MEDS: ARIPiprazole 10 mg Tablet PO (09:47)
[2020-11-23 14:00] VITALS: BP 127/87; PULSE 92; RESP 16; TEMP 36.8; O2SAT 99
[2020-11-23 15:31] VITALS: BP 127/85; PULSE 62; RESP 16; TEMP 36.6; O2SAT 99
--- NOTE | 2020-11-23 17:43 | P.PN_ITS ---
Subjective NPU Subjective: Interval history: Medicine presents today reporting that she is feeling a little bit better as she got a great night sleep last night. She had a as needed Zyprexa which she reports allow her to sleep 8 hours. We discussed the fact that Zyprexa can have that positive impact on people we discussed the differences between it and the Abilify she is taking. She was meeting with her sister and we discussed the 96-hour hold process and the possibility of her being discharged prior to when the 96-hour hold is up. That relieved a lot of concerns and she was optimistic about feeling better with continued treatment. Mental Status Exam MSE Comments: This is an obese white female in hospital scrubs with adequate grooming and eye contact. No abnormal movements except for mild psychomotor retardation. Cooperative with exam in no acute distress. Speech was decreased rate and volume. Mood described as I am feeling a little more optimistic, affect subdued. Thought process organized. Thought content: Patient denied suicidal or homicidal ideation, there were no delusions reported or noted, she endorsed some visual hallucinations but denied current auditory hallucinations. Attention and concentration appeared intact and memory was mostly reliable but none were formally tested. She is alert and oriented x3. Insight and judgment are fair and impulse control is limited. Vitals/I&O/Wt Last Vital Signs Temp 97.8 F 11/23/20 15:31 Pulse 62 11/23/20 15:31 Resp 16 11/23/20 15:31 BP 127/85 11/23/20 15:31 Pulse Ox 99 11/23/20 15:31 Data NPU : 11/21/20 12:10 11/21/20 12:10 A&P Additional A&P Information (1) Suicidal ideation: (2) Bipolar disorder, curr episode depressed, severe, w/psychotic features: (3) Alcohol use: (4) Cannabis abuse: Additional A&P Information This is a 20-year-old white female with a history of trauma but a more recent history of addiction and mood dysregulation seeming consistent with bipolar disorder who presents open to a trial of medication. 1. Continue current medication. 2. Continue every 15 minute checks for safety. 3. Encourage individual, group and milieu therapies. 4. Encourage sober living treatment after discharge at the highest level of care to which she is willing to commit. Involuntary Hold Information 96 Hour Hold: 96 Hour Involuntary Admission: Yes 96 Hour Hold Ending Date: 11/27/20 96 Hour Hold Ending Time: 13:15 Attestations NPU 2 Medical Necessity Statement*: Inpatient hospitalization is medically necessary and the clinically appropriate intervention at this time. We will monitor medic ations and make changes as indicated. Likely length of stay 3-5 days. Coding Level of Care Code Acute Medical Support Assistant for Paola Torres
[2020-11-23 20:41] VITALS: BP 132/89; PULSE 96; RESP 18; TEMP 36.8; O2SAT 99
[2020-11-23] MEDS: hyDROXYzine 25 mg Capsule 50 MG PO (21:12)
--- NOTE | 2020-11-23 21:41 | PC.NURSE ---
pt requested med for sleep. when offered trazodone, pt stated it did not work for her, could she have vistaril? pt stated vistaril works much better fro her. vistaril 50mg po given.
[2020-11-24] MEDS: ondansetron 4 MG Tablet PO ×2 (01:50→14:49)
[2020-11-24 06:00] VITALS: BP 130/89; PULSE 75; RESP 18; TEMP 36.6; O2SAT 99
[2020-11-24] MEDS: ARIPiprazole 10 mg Tablet PO (08:14)
[2020-11-24] MEDS: acetaminophen 325 mg Tablet 650 MG PO ×2 (08:15→16:51)
[2020-11-24 14:00] VITALS: BP 138/84; PULSE 80; RESP 16; TEMP 36.8; O2SAT 97
--- NOTE | 2020-11-24 14:50 | PC.NURSE ---
PRN ZOFRAN 4 MG GIVEN PO PER PT C/O STATED NAUSEA. WILL CONT TO MONITOR.
--- NOTE | 2020-11-24 20:04 | PM.NPN ---
Subjective NPU Subjective: Interval history: Nicole presents today with her sister again at visiting reporting that she did not sleep as well last night because he did not have Zyprexa last night. Discussed the risk benefits and alternatives of adding doxepin for sleep and she understood and agreed proceed as is documented in this note. We discussed the plan for likely discharge in the morning both she and her sister endorsed feeling that she would be safe and they would be able to navigate the outpatient plan. Mental Status Exam MSE Comments: This is an obese white female in hospital scrubs with adequate grooming and eye contact. No abnormal movements except for mild psychomotor retardation. Cooperative with exam in no acute distress. Speech was more normal rate and volume. Mood described as I am feeling a little better, affect subdued. Thought process organized. Thought content: Patient denied suicidal or homicidal ideation, there were no delusions reported or noted, she denied auditory or visual hallucinations. Attention and concentration appeared intact and memory was mostly reliable but none were formally tested. She is alert and oriented x3. Insight and judgment are fair and impulse control is improving. Vitals/I&O/Wt Last Vital Signs Temp 98.2 F 11/24/20 14:00 Pulse 80 11/24/20 14:00 Resp 16 11/24/20 14:00 BP 138/84 11/24/20 14:00 Pulse Ox 97 11/24/20 14:00 Weight last 48 hrs Weight 74.389 kg Data NPU : 11/21/20 12:10 11/21/20 12:10 A&P Additional A&P Information (1) Suicidal ideation: (2) Bipolar disorder, curr episode depressed, severe, w/psychotic features: (3) Alcohol use: (4) Cannabis abuse: Additional A&P Information This is a 20-year-old white female with a history of trauma but a more recent history of addiction and mood dysregulation seeming consistent with bipolar disorder who presents open to a trial of medication. 1. Continue current medication. Increase Abilify to 50 mg p.o. every morning and add doxepin 10 mg p.o. nightly. 2. Continue every 15 minute checks for safety. 3. Encourage individual, group and milieu therapies. 4. Encourage sober living treatment after discharge at the highest level of care to which she is willing to commit. Involuntary Hold Information 96 Hour Hold: 96 Hour Involuntary Admission: Yes 96 Hour Hold Ending Date: 11/27/20 96 Hour Hold Ending Time: 13:15 Attestations NPU Medical Necessity Statement*: Inpatient hospitalization is medically necessary and the clinically appropriate intervention at this time. We will monitor medications and make changes as indicated. Likely length of stay 1-3 days. Coding Level of Care Code Acute Piercer Operator for Paola Torres
[2020-11-24] MEDS: doxepin 10 mg Capsule PO (20:40)
[2020-11-24] MEDS: hyDROXYzine 25 mg Capsule 50 MG PO (20:40)
--- NOTE | 2020-11-24 20:50 | PC.NURSE ---
PT REQUESTED VISTARIL BY NAME TO HELP HER SLEEP. [id number] PO GIVEN.
[2020-11-24 21:40] VITALS: BP 137/94; PULSE 87; RESP 22; TEMP 36.7; O2SAT 97
--- NOTE | 2020-11-24 23:00 | PC.NURSE ---
PT RESTING IN ROOM QUIETLY WITH BOTH EYES CLOSED.
[2020-11-25] MEDS: OLANZapine 5 mg ODT PO (01:53)
--- NOTE | 2020-11-25 01:53 | PC.NURSE ---
PT CAME TO DESK REQUESTING IS THERE SOMETHING ELSE I CAN TAKE? I CAN'T SLEEP. PT HAS BEEN NOTED RESTING QUIETLY WITH BOTH EYES CLOSED WHEN Q15MIN ROUNDS ARE DONE, ZYPREXA ZYDIS 5MG SL GIVEN.
[2020-11-25] MEDS: acetaminophen 325 mg Tablet 650 MG PO (05:50)
[2020-11-25 06:00] VITALS: BP 103/66; PULSE 77; RESP 18; TEMP 36.4; O2SAT 94
[2020-11-25] MEDS: ARIPiprazole 10 mg Tablet 15 MG PO (08:35)
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
[2020-11-25 11:26] VITALS: BP 103/66; PULSE 77; RESP 18; TEMP 36.4; O2SAT 94
== END 2020-11-25 12:36 | disposition home or self-care (01) | DRG 885 ==
LOC: ER 12:00 → NP 13:38
PROVIDERS: Admitting Provider Psychiatry & Neurology Psychiatry; Emergency Provider Family Medicine; PCP Family Medicine; Visit Provider Psychiatry & Neurology Psychiatry
DX: F31.5 Bipolar disorder, current episode depressed, severe, with psychotic features (principal); R45.851 Suicidal ideations; F10.10 Alcohol abuse, uncomplicated; Z87.891 Personal history of nicotine dependence; F12.10 Cannabis abuse, uncomplicated; Z81.8 Family history of other mental and behavioral disorders; Z79.891 Long term (current) use of opiate analgesic
CPT/HCPCS: 80053; 80306; 80307; 81003; 81025; 84443; 84484; 85025; 93005; 99285; Q0162

== ENCOUNTER 2020-12-27 11:33 | Inpatient (IN) | payer SELFPAY ==
[2020-12-27 11:40] VITALS: BP 145/96; PULSE 117; RESP 16; TEMP 36.7; O2SAT 99
--- NOTE | 2020-12-27 11:59 | ECG_ITS ---
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 Measurements Intervals [place] Rate: 90 P: 16 W[place]: 129 QRS: 2 QRSD: 88 T: -3 QT: 350 QTc: 428 Interpretive Statements SINUS RHYTHM MINIMAL VOLTAGE CRITERIA FOR LVH, CONSIDER NORMAL VARIANT [MEETS CRITERIA IN ONE OF: R(aVL), S(V1), R(V5), R(V5/V6)+S(V1)] Compared to ECG 11/21/2020 11:57:40 Sinus tachycardia no longer present Electronically Signed On 12-30-2020 0:17:27 CDT by Sophie Hill M.D. [email or web address]
--- NOTE | 2020-12-27 12:00 | W.ED.PSYCH ---
Documented by User: TINY Quiñonez 12/27/20 13:19 HPI - Psych General: Chief Complaint: Psychiatric Symptoms Stated Complaint: WANTS TO GO TO THE UNIT Time Seen by Provider: 12/27/20 11:44 History of Present Illness: HPI Narrative: 20-year-old female comes in today with suicidal ideation. Patient reports that she has had thoughts of suicide but no specific plan. Patient is alert and oriented. Patient does have superficial laceration brito to bilateral forearms. Patient does admit to cutting. Patient admits to use of THC. Patient denies any use of alcohol. Patient reports that she does take her routine psychiatric medications. Patient was admitted 1 month ago to the stress unit for alcohol abuse and suicidal ideation. MD complaint: suicidal ideation and feels depressed Onset (ago): day(s) Duration: intermittent and getting worse History of same: Yes Relieving factors: medication Context: recent drug abuse (THC) Associated psychiatric symptoms: depression and suicidal ideation Associated symptoms: Reports suicidal ideation Review of Systems General: Reports: 10 or more systems reviewed and unremarkable except in HPI and below Psych: Reports: suicidal ideation [facility] ED PFSH: Medical History (Updated 12/27/20 @ 13:09 by TINY Quiñonez) No pertinent past medical history Social History Smoking and tobacco status: never smoked Alcohol intake: never History of recent travel: No Female Reproductive History: Date of last menstrual period: 10/24/20 Physical Exam Const: COMMON NORMALS: no acute distress and patient oriented x3 GENERAL APPEARANCE: cooperative and well kempt HENMT: COMMON NORMALS: normocephalic and Normal external nose present HEAD & SCALP: normal to inspection and normocephalic NOSE: Normal external nose present MOUTH: Normal oral and palatal mucosa present Eye: GENERAL EYE: appearance normal, both eyes and all related structures Neck/C-Spine: COMMON NORMALS: full ROM Lymph: LYMPHATIC: no lymphadenopathy noted Chest: COMMONS NORMALS: normal inspection of the chest Resp: COMMON NORMALS: normal respiratory effort EFFORT & INSPECTION: Yes able to speak in complete sentences Cardio: COMMON NORMALS: regular rate and regular rhythm RATE: regular rate RHYTHM: regular rhythm GI: COMMON NORMALS: non-tender Extremity: COMMON NORMALS: normal to inspection Neuro: COMMON NORMALS: patient oriented x3 and moves all extremities Psych: COMMON NORMALS: cooperative and speech normal APPEARANCE: Yes well kempt ATTITUDE: Yes calm ACTIVITY/MOTOR BEHAVIOR: Yes Avoids eye contact (attititude/behavior) SPEECH: Yes normal speech MOOD & AFFECT: Yes depressed mood and Yes tearful THOUGHT PROCESS: Circumstantial thought process present THOUGHT CONTENT: Yes Suicidality present ATTENTION/CONCENTRATION: Yes attention grossly intact MEMORY/COGNITION: Yes memory grossly intact INSIGHT: Fair insight present (Psych) JUDGEMENT: Fair judgement present (Psych) Skin: COMMON NORMALS: no rashes or lesions noted GENERAL SKIN EXAM: no rashes or lesions noted Course ED course: 1308, reviewed patient's information with Dr. Quintin Sierra, psychiatrist, he agreed to the admission for suicidal ideation. 8, reviewed patient with Dr. Hancock who agreed to accept patient in order to admit to [facility] for further treatment. Vital Signs: Vital signs: Vital Signs Temperature 98.1 F 12/27/20 11:40 Pulse Rate 117 H 12/27/20 11:40 Respiratory Rate 16 12/27/20 11:40 Blood Pressure 145/96 12/27/20 11:40 Pulse Oximetry 99 12/27/20 11:40 MDM - Psych MDM Narrative: Medical decision making narrative: Patient comes in today and is very tearful. Patient reports that she has had increased depression and suicidal thoughts. Patient reports no specific plan. Physical exam is normal except for some superficial laceration/self-harm brito to bilateral forearm forearms. Patient reports that she does want to hurt her self but does have a history of cutting. Patient also has a history of cannabis abuse, alcohol abuse and previous suicidal ideation with admission to stress unit in October 2020. When asked patient had an event that started this bout of depression she said it had to do with Mondays. Patient not elaborate on this. Differential diagnosis includes suicidal ideation, bipolar disorder, substance abuse. Patient needs admission to the [facility] because of suicidal ideation to protect herself. Patient needs further evaluation and definitive treatment relating her psychiatric condition. I reviewed this with Dr. Quintin Sierra who agreed to receive patient to the [facility]. Dr. Hancock accepted the patient to write admit orders. Lab Data: Labs: Lab Results 12/27/20 12/27/20 12/27/20 Range/Units 11:45 11:45 11:45 WBC 7.2 (4.0-10.0) 10^3/ uL RBC 4.78 (4.1-5.3) 10^6/u L Hgb 14.7 (11.5-15.3) g/dL Hct 45.2 (37.0-47.0) % MCV 94.6 (81-99) fL MCH 30.8 (28.0-34.0) pg MCHC 32.5 (30.0-36.0) g/dL RDW 12.2 (12.1-15.1) % Plt Count 345 (130-400) 10^3/c mm MPV 9.3 (7.4-10.4) fL Neut % (Auto) 63.7 % Lymph % (Auto) 25.9 % [place] % (Auto) 8.4 % Eos % (Auto) 1.3 % Baso % (Auto) 0.6 % Neut # (Auto) 4.57 (1.8-7.7) 10^3/u L Lymph # (Auto) 1.9 (0.8-4.8) 10^3/u L [place] # (Auto) 0.6 (0.2-0.9) 10^3/u L Eos # (Auto) 0.1 (0.0-0.8) 10^3/u L Baso # (Auto) 0.0 (0.0-0.1) 10^3/u L Nucleated RBC % (a uto) 0 % Nucleated RBCs # 0.0 /100WBC Sodium 136 (136-145) mmol/L Potassium 4.1 (3.5-5.1) mmol/L Chloride 101 (98-107) mmol/L Carbon Dioxide 23 (22-29) mmol/L Anion Gap 16.1 (5-19) BUN 12 (6-20) mg/dL Creatinine 0.6 (0.5-0.9) mg/dL GFR Calculation 126.2 (90-130) mL/min Glucose 92 (65-115) mg/dL Calculated Osmolal ity 281 L (285-295) mOsm/k g Calcium 9.4 (8.5-10.5) mg/dL Total Bilirubin 0.2 (0.15-1.2) mg/dL AST 13 (0-32) U/L ALT 14 (0-33) U/L Alkaline Phosphata se 71 (35-105) IU/L Total Protein 7.2 (6.6-8.7) g/dL Albumin 4.5 (3.5-5.2) g/dL Globulin 2.7 (1.3-4.6) g/dL TSH 1.68 (0.27-4.20) uIU/ mL HCG, Qual (Negative) Urine Color (Yellow) Urine Appearance (CLEAR) Urine pH (5-7) Ur Specific Gravit y (1.005-1.030) Urine Protein (Negative) Urine Glucose (UA) (Normal) Urine Ketones (Negative) Urine Blood (Negative) Urine Nitrate (Negative) Urine Bilirubin (Negative) Urine Urobilinogen (Negative) mg/dL Ur Leukocyte Awa ase (Negative) Urine RBC (0-2) /hpf Urine WBC (0-5) /hpf Ur Squamous Epith Cells (0-5) /hpf Amorphous Sediment Urine Bacteria (NONE) /hpf Urine Mucus /hpf Salicylates < 0.3 L (3-10) mg/dL Urine Opiates Scre en (Negative) ng/mL Acetaminophen < 5.0 L (10-30) ug/mL Ur Barbiturates Sc reen (Negative) ng/mL Ur Phencyclidine S crn (Negative) ng/mL Ur Amphetamines Sc reen (Negative) ng/mL U Benzodiazepines Scrn (Negative) ng/mL Urine Cocaine Scre en (Negative) ng/mL U Marijuana (THC) Screen (Negative) ng/mL Ethyl Alcohol < 10 (0-10) mg/dL SARS-CoV-2 Ag (Rap id) (Negative) 12/27/20 12/27/20 12/27/20 Range/Units 12:50 Unknown Unknown WBC (4.0-10.0) 10^3/ uL RBC (4.1-5.3) 10^6/u L Hgb (11.5-15.3) g/dL Hct (37.0-47.0) % MCV (81-99) fL MCH (28.0-34.0) pg MCHC (30.0-36.0) g/dL RDW (12.1-15.1) % Plt Count (130-400) 10^3/c mm MPV (7.4-10.4) fL Neut % (Auto) % Lymph % (Auto) % [place] % (Auto) % Eos % (Auto) % Baso % (Auto) % Neut # (Auto) (1.8-7.7) 10^3/u L Lymph # (Auto) (0.8-4.8) 10^3/u L [place] # (Auto) (0.2-0.9) 10^3/u L Eos # (Auto) (0.0-0.8) 10^3/u L Baso # (Auto) (0.0-0.1) 10^3/u L Nucleated RBC % (a uto) % Nucleated RBCs # /100WBC Sodium (136-145) mmol/L Potassium (3.5-5.1) mmol/L Chloride (98-107) mmol/L Carbon Dioxide (22-29) mmol/L Anion Gap (5-19) BUN (6-20) mg/dL Creatinine (0.5-0.9) mg/dL GFR Calculation (90-130) mL/min Glucose (65-115) mg/dL Calculated Osmolal ity (285-295) mOsm/k g Calcium (8.5-10.5) mg/dL Total Bilirubin (0.15-1.2) mg/dL AST (0-32) U/L ALT (0-33) U/L Alkaline Phosphata se (35-105) IU/L Total Protein (6.6-8.7) g/dL Albumin (3.5-5.2) g/dL Globulin (1.3-4.6) g/dL TSH (0.27-4.20) uIU/ mL HCG, Qual Negative (Negative) Urine Color Yellow (Yellow) Urine Appearance Sl hazy (CLEAR) Urine pH 6.5 (5-7) Ur Specific Gravit y 1.010 (1.005-1.030) Urine Protein Neg (Negative) Urine Glucose (UA) Norm (Normal) Urine Ketones Negative (Negative) Urine Blood Neg (Negative) Urine Nitrate Negative (Negative) Urine Bilirubin Neg (Negative) Urine Urobilinogen Norm (Negative) mg/dL Ur Leukocyte Awa ase 1+ H (Negative) Urine RBC None (0-2) /hpf Urine WBC 5-10 H (0-5) /hpf Ur Squamous Epith Cells 15-25 H (0-5) /hpf Amorphous Sediment Not Reportable Urine Bacteria 1+ H (NONE) /hpf Urine Mucus Trace /hpf Salicylates (3-10) mg/dL Urine Opiates Scre en (Negative) ng/mL Acetaminophen (10-30) ug/mL Ur Barbiturates Sc reen (Negative) ng/mL Ur Phencyclidine S crn (Negative) ng/mL Ur Amphetamines Sc reen (Negative) ng/mL U Benzodiazepines Scrn (Negative) ng/mL Urine Cocaine Scre en (Negative) ng/mL U Marijuana (THC) Screen (Negative) ng/mL Ethyl Alcohol (0-10) mg/dL SARS-CoV-2 Ag (Rap id) Negative (Negative) 12/27/20 Range/Units Unknown WBC (4.0-10.0) 10^3/ uL RBC (4.1-5.3) 10^6/u L Hgb (11.5-15.3) g/dL Hct (37.0-47.0) % MCV (81-99) fL MCH (28.0-34.0) pg MCHC (30.0-36.0) g/dL RDW (12.1-15.1) % Plt Count (130-400) 10^3/c mm MPV (7.4-10.4) fL Neut % (Auto) % Lymph % (Auto) % [place] % (Auto) % Eos % (Auto) % Baso % (Auto) % Neut # (Auto) (1.8-7.7) 10^3/u L Lymph # (Auto) (0.8-4.8) 10^3/u L [place] # (Auto) (0.2-0.9) 10^3/u L Eos # (Auto) (0.0-0.8) 10^3/u L Baso # (Auto) (0.0-0.1) 10^3/u L Nucleated RBC % (a uto) % Nucleated RBCs # /100WBC Sodium (136-145) mmol/L Potassium (3.5-5.1) mmol/L Chloride (98-107) mmol/L Carbon Dioxide (22-29) mmol/L Anion Gap (5-19) BUN (6-20) mg/dL Creatinine (0.5-0.9) mg/dL GFR Calculation (90-130) mL/min Glucose (65-115) mg/dL Calculated Osmolal ity (285-295) mOsm/k g Calcium (8.5-10.5) mg/dL Total Bilirubin (0.15-1.2) mg/dL AST (0-32) U/L ALT (0-33) U/L Alkaline Phosphata se (35-105) IU/L Total Protein (6.6-8.7) g/dL Albumin (3.5-5.2) g/dL Globulin (1.3-4.6) g/dL TSH (0.27-4.20) uIU/ mL HCG, Qual (Negative) Urine Color (Yellow) Urine Appearance (CLEAR) Urine pH (5-7) Ur Specific Gravit y (1.005-1.030) Urine Protein (Negative) Urine Glucose (UA) (Normal) Urine Ketones (Negative) Urine Blood (Negative) Urine Nitrate (Negative) Urine Bilirubin (Negative) Urine Urobilinogen (Negative) mg/dL Ur Leukocyte Awa ase (Negative) Urine RBC (0-2) /hpf Urine WBC (0-5) /hpf Ur Squamous Epith Cells (0-5) /hpf Amorphous Sediment Urine Bacteria (NONE) /hpf Urine Mucus /hpf Salicylates (3-10) mg/dL Urine Opiates Scre en Negative (Negative) ng/mL Acetaminophen (10-30) ug/mL Ur Barbiturates Sc reen Negative (Negative) ng/mL Ur Phencyclidine S crn Negative (Negative) ng/mL Ur Amphetamines Sc reen Negative (Negative) ng/mL U Benzodiazepines Scrn Positive H (Negative) ng/mL Urine Cocaine Scre en Negative (Negative) ng/mL U Marijuana (THC) Screen Positive H (Negative) ng/mL Ethyl Alcohol (0-10) mg/dL SARS-CoV-2 Ag (Rap id) (Negative) EKG Data^: EKG 1: Attestation: I personally reviewed and interpreted this EKG as follows: (1247, EKG shows a sinus rhythm with a regular rate at 90 bpm, no ST elevation no ectopy is noted.) Discharge Plan Discharge Patient Disposition: Admitted As Inpatient Clinical Impression: Suicidal ideation Condition: Stable Sign Out Sign Out Data: Patient Sign Out occurred on 12/27/20 at 13:41. Patient's care was discussed, and care was transferred from to Melvin Hancock DO. Coding Level of Care Code ED Nail Sticker for Chg Fwd Exam Comprehensive Documented by User: Melvin Hancock DO 12/27/20 13:45 HPI - Psych General: Chief Complaint: Psychiatric Symptoms Stated Complaint: WANTS TO GO TO THE UNIT Time Seen by Provider: 12/27/20 11:44 PFSH ED PFSH: Medical History (Updated 12/27/20 @ 13:09 by TINY Quiñonez) No pertinent past medical history Social History Smoking and tobacco status: never smoked Alcohol intake: never History of recent travel: No Course Vital Signs: Vital signs: Vital Signs Temperature 98.1 F 12/27/20 11:40 Pulse Rate 117 H 12/27/20 11:40 Respiratory Rate 16 12/27/20 11:40 Blood Pressure 145/96 12/27/20 11:40 Pulse Oximetry 99 12/27/20 11:40 MDM - Psych MDM Narrative: Medical decision making narrative: Reviewed case with GO Moreno. Agree with assessment and plan reviewed chart as well. Orders written. Lab Data: Labs: Lab Results 12/27/20 12/27/20 12/27/20 Range/Units 11:45 11:45 11:45 WBC 7.2 (4.0-10.0) 10^3/ uL RBC 4.78 (4.1-5.3) 10^6/u L Hgb 14.7 (11.5-15.3) g/dL Hct 45.2 (37.0-47.0) % MCV 94.6 (81-99) fL MCH 30.8 (28.0-34.0) pg MCHC 32.5 (30.0-36.0) g/dL RDW 12.2 (12.1-15.1) % Plt Count 345 (130-400) 10^3/c mm MPV 9.3 (7.4-10.4) fL Neut % (Auto) 63.7 % Lymph % (Auto) 25.9 % [place] % (Auto) 8.4 % Eos % (Auto) 1.3 % Baso % (Auto) 0.6 % Neut # (Auto) 4.57 (1.8-7.7) 10^3/u L Lymph # (Auto) 1.9 (0.8-4.8) 10^3/u L [place] # (Auto) 0.6 (0.2-0.9) 10^3/u L Eos # (Auto) 0.1 (0.0-0.8) 10^3/u L Baso # (Auto) 0.0 (0.0-0.1) 10^3/u L Nucleated RBC % (a uto) 0 % Nucleated RBCs # 0.0 /100WBC Sodium 136 (136-145) mmol/L Potassium 4.1 (3.5-5.1) mmol/L Chloride 101 (98-107) mmol/L Carbon Dioxide 23 (22-29) mmol/L Anion Gap 16.1 (5-19) BUN 12 (6-20) mg/dL Creatinine 0.6 (0.5-0.9) mg/dL GFR Calculation 126.2 (90-130) mL/min Glucose 92 (65-115) mg/dL Calculated Osmolal ity 281 L (285-295) mOsm/k g Calcium 9.4 (8.5-10.5) mg/dL Total Bilirubin 0.2 (0.15-1.2) mg/dL AST 13 (0-32) U/L ALT 14 (0-33) U/L Alkaline Phosphata se 71 (35-105) IU/L Total Protein 7.2 (6.6-8.7) g/dL Albumin 4.5 (3.5-5.2) g/dL Globulin 2.7 (1.3-4.6) g/dL TSH 1.68 (0.27-4.20) uIU/ mL HCG, Qual (Negative) Urine Color (Yellow) Urine Appearance (CLEAR) Urine pH (5-7) Ur Specific Gravit y (1.005-1.030) Urine Protein (Negative) Urine Glucose (UA) (Normal) Urine Ketones (Negative) Urine Blood (Negative) Urine Nitrate (Negative) Urine Bilirubin (Negative) Urine Urobilinogen (Negative) mg/dL Ur Leukocyte Awa ase (Negative) Urine RBC (0-2) /hpf Urine WBC (0-5) /hpf Ur Squamous Epith Cells (0-5) /hpf Amorphous Sediment Urine Bacteria (NONE) /hpf Urine Mucus /hpf Salicylates < 0.3 L (3-10) mg/dL Urine Opiates Scre en (Negative) ng/mL Acetaminophen < 5.0 L (10-30) ug/mL Ur Barbiturates Sc reen (Negative) ng/mL Ur Phencyclidine S crn (Negative) ng/mL Ur Amphetamines Sc reen (Negative) ng/mL U Benzodiazepines Scrn (Negative) ng/mL Urine Cocaine Scre en (Negative) ng/mL U Marijuana (THC) Screen (Negative) ng/mL Ethyl Alcohol < 10 (0-10) mg/dL SARS-CoV-2 Ag (Rap id) (Negative) 12/27/20 12/27/20 12/27/20 Range/Units 12:50 Unknown Unknown WBC (4.0-10.0) 10^3/ uL RBC (4.1-5.3) 10^6/u L Hgb (11.5-15.3) g/dL Hct (37.0-47.0) % MCV (81-99) fL MCH (28.0-34.0) pg MCHC (30.0-36.0) g/dL RDW (12.1-15.1) % Plt Count (130-400) 10^3/c mm MPV (7.4-10.4) fL Neut % (Auto) % Lymph % (Auto) % [place] % (Auto) % Eos % (Auto) % Baso % (Auto) % Neut # (Auto) (1.8-7.7) 10^3/u L Lymph # (Auto) (0.8-4.8) 10^3/u L [place] # (Auto) (0.2-0.9) 10^3/u L Eos # (Auto) (0.0-0.8) 10^3/u L Baso # (Auto) (0.0-0.1) 10^3/u L Nucleated RBC % (a uto) % Nucleated RBCs # /100WBC Sodium (136-145) mmol/L Potassium (3.5-5.1) mmol/L Chloride (98-107) mmol/L Carbon Dioxide (22-29) mmol/L Anion Gap (5-19) BUN (6-20) mg/dL Creatinine (0.5-0.9) mg/dL GFR Calculation (90-130) mL/min Glucose (65-115) mg/dL Calculated Osmolal ity (285-295) mOsm/k g Calcium (8.5-10.5) mg/dL Total Bilirubin (0.15-1.2) mg/dL AST (0-32) U/L ALT (0-33) U/L Alkaline Phosphata se (35-105) IU/L Total Protein (6.6-8.7) g/dL Albumin (3.5-5.2) g/dL Globulin (1.3-4.6) g/dL TSH (0.27-4.20) uIU/ mL HCG, Qual Negative (Negative) Urine Color Yellow (Yellow) Urine Appearance Sl hazy (CLEAR) Urine pH 6.5 (5-7) Ur Specific Gravit y 1.010 (1.005-1.030) Urine Protein Neg (Negative) Urine Glucose (UA) Norm (Normal) Urine Ketones Negative (Negative) Urine Blood Neg (Negative) Urine Nitrate Negative (Negative) Urine Bilirubin Neg (Negative) Urine Urobilinogen Norm (Negative) mg/dL Ur Leukocyte Awa ase 1+ H (Negative) Urine RBC None (0-2) /hpf Urine WBC 5-10 H (0-5) /hpf Ur Squamous Epith Cells 15-25 H (0-5) /hpf Amorphous Sediment Not Reportable Urine Bacteria 1+ H (NONE) /hpf Urine Mucus Trace /hpf Salicylates (3-10) mg/dL Urine Opiates Scre en (Negative) ng/mL Acetaminophen (10-30) ug/mL Ur Barbiturates Sc reen (Negative) ng/mL Ur Phencyclidine S crn (Negative) ng/mL Ur Amphetamines Sc reen (Negative) ng/mL U Benzodiazepines Scrn (Negative) ng/mL Urine Cocaine Scre en (Negative) ng/mL U Marijuana (THC) Screen (Negative) ng/mL Ethyl Alcohol (0-10) mg/dL SARS-CoV-2 Ag (Rap id) Negative (Negative) 12/27/20 Range/Units Unknown WBC (4.0-10.0) 10^3/ uL RBC (4.1-5.3) 10^6/u L Hgb (11.5-15.3) g/dL Hct (37.0-47.0) % MCV (81-99) fL MCH (28.0-34.0) pg MCHC (30.0-36.0) g/dL RDW (12.1-15.1) % Plt Count (130-400) 10^3/c mm MPV (7.4-10.4) fL Neut % (Auto) % Lymph % (Auto) % [place] % (Auto) % Eos % (Auto) % Baso % (Auto) % Neut # (Auto) (1.8-7.7) 10^3/u L Lymph # (Auto) (0.8-4.8) 10^3/u L [place] # (Auto) (0.2-0.9) 10^3/u L Eos # (Auto) (0.0-0.8) 10^3/u L Baso # (Auto) (0.0-0.1) 10^3/u L Nucleated RBC % (a uto) % Nucleated RBCs # /100WBC Sodium (136-145) mmol/L Potassium (3.5-5.1) mmol/L Chloride (98-107) mmol/L Carbon Dioxide (22-29) mmol/L Anion Gap (5-19) BUN (6-20) mg/dL Creatinine (0.5-0.9) mg/dL GFR Calculation (90-130) mL/min Glucose (65-115) mg/dL Calculated Osmolal ity (285-295) mOsm/k g Calcium (8.5-10.5) mg/dL Total Bilirubin (0.15-1.2) mg/dL AST (0-32) U/L ALT (0-33) U/L Alkaline Phosphata se (35-105) IU/L Total Protein (6.6-8.7) g/dL Albumin (3.5-5.2) g/dL Globulin (1.3-4.6) g/dL TSH (0.27-4.20) uIU/ mL HCG, Qual (Negative) Urine Color (Yellow) Urine Appearance (CLEAR) Urine pH (5-7) Ur Specific Gravit y (1.005-1.030) Urine Protein (Negative) Urine Glucose (UA) (Normal) Urine Ketones (Negative) Urine Blood (Negative) Urine Nitrate (Negative) Urine Bilirubin (Negative) Urine Urobilinogen (Negative) mg/dL Ur Leukocyte Awa ase (Negative) Urine RBC (0-2) /hpf Urine WBC (0-5) /hpf Ur Squamous Epith Cells (0-5) /hpf Amorphous Sediment Urine Bacteria (NONE) /hpf Urine Mucus /hpf Salicylates (3-10) mg/dL Urine Opiates Scre en Negative (Negative) ng/mL Acetaminophen (10-30) ug/mL Ur Barbiturates Sc reen Negative (Negative) ng/mL Ur Phencyclidine S crn Negative (Negative) ng/mL Ur Amphetamines Sc reen Negative (Negative) ng/mL U Benzodiazepines Scrn Positive H (Negative) ng/mL Urine Cocaine Scre en Negative (Negative) ng/mL U Marijuana (THC) Screen Positive H (Negative) ng/mL Ethyl Alcohol (0-10) mg/dL SARS-CoV-2 Ag (Rap id) (Negative) Discharge Plan Discharge Patient Disposition: Admitted As Inpatient Clinical Impression: Suicidal ideation Condition: Stable Sign Out Sign Out Data: Patient Sign Out occurred on 12/27/20 at 13:41. Patient's care was discussed, and care was transferred from to Melvin Hancock DO. Coding Level of Care Code ED Nail Sticker for [place] Fwd Exam Comprehensive
[2020-12-27 12:21] LABS: Basophils % 0.6 %; Eosinophils # 0.1 10^3/uL (0.0-0.8); Eosinophils % 1.3 %; Hematocrit 45.2 % (37.0-47.0); Hemoglobin 14.7 g/dL (11.5-15.3); Lymphocytes # 1.9 10^3/uL (0.8-4.8); Lymphocytes % 25.9 %; Mean Corpuscular HGB Conc 32.5 g/dL (30.0-36.0); Mean Corpuscular Hemoglobin 30.8 pg (28.0-34.0); Mean Corpuscular Volume 94.6 fL (81-99); Mean Platelet Volume 9.3 fL (7.4-10.4); Monocytes # 0.6 10^3/uL (0.2-0.9); Monocytes % 8.4 %; Neutrophils # 4.57 10^3/uL (1.8-7.7); Neutrophils % 63.7 %; Nucleated Red Blood Cells % 0 %; Platelet Count 345 10^3/cmm (130-400); Red Blood Count 4.78 10^6/uL (4.1-5.3); Red Cell Distribution Width 12.2 % (12.1-15.1); White Blood Count 7.2 10^3/uL (4.0-10.0)
[2020-12-27 12:34] LABS: Alanine Aminotransferase 14 U/L (0-33); Albumin Level 4.5 g/dL (3.5-5.2); Alkaline Phosphatase 71 IU/L (35-105); Anion Gap 16.1 (5-19); Aspartate Amino Transferase 13 U/L (0-32); Blood Urea Nitrogen 12 mg/dL (6-20); Calcium 9.4 mg/dL (8.5-10.5); Carbon Dioxide 23 mmol/L (22-29); Chloride 101 mmol/L (98-107); Globulin 2.7 g/dL (1.3-4.6); Glomerular Filtration Rate 126.2 mL/min (90-130); Glucose 92 mg/dL (65-115); Osmolality Calculated 281 mOsm/kg (285-295); Potassium 4.1 mmol/L (3.5-5.1); Sodium 136 mmol/L (136-145); Total Bilirubin 0.2 mg/dL (0.15-1.2); Total Protein 7.2 g/dL (6.6-8.7)
[2020-12-27 12:37] LABS: Acetaminophen < 5.0 ug/mL (10-30); Alcohol Level < 10 mg/dL (0-10); Salicylate < 0.3 mg/dL (3-10)
[2020-12-27 13:23] LABS: Add Urine Microscopic? YES; Bilirubin Urine Neg (Negative); Blood Urine Neg (Negative); Glucose Urine UA Norm (Normal); Ketones Urine Negative (Negative); Leukocyte Esterase Urine 1+ (Negative); Nitrate Urine Negative (Negative); Protein Urine Neg (Negative); Urine Appearance SL Hazy (CLEAR); Urine Color Yellow (Yellow); Urobilinogen Urine Norm (Negative); pH Urine 6.5 (5-7)
[2020-12-27 13:28] LABS: HCG Qualitative Urine. Negative (Negative)
[2020-12-27 13:32] LABS: Amphetamines Screen Urine Negative (Negative); Barbiturates Screen Urine Negative (Negative); Benzodiazepines Screen Urine Positive (Negative); Cocaine Screen Urine Negative (Negative); Opiate Screen Urine Negative (Negative); PCP Screen Urine Negative (Negative); THC Screen Urine Positive (Negative)
[2020-12-27 13:35] LABS: Add Urine Culture? No; Bacteria Urine 1+ /hpf; Mucus Urine TRACE /hpf; Squamous Epithelial Cell Urine 15-25 /hpf (0-5)
[2020-12-27 13:36] LABS: SARS Covid-2 Antigen Negative (Negative)
[2020-12-27 13:42] LABS: Thyroid Stimulating Hormone 1.68 uIU/mL (0.27-4.20)
[2020-12-27 14:03] VITALS: BP 140/90; PULSE 93; O2SAT 99
[2020-12-27 15:06] VITALS: BP 131/86; PULSE 96; RESP 17; TEMP 37.1; O2SAT 96
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
[2020-12-27] MEDS: temazepam 15 mg Capsule PO (21:14)
[2020-12-27] MEDS: quetiapine 100 mg Tablet PO (21:14)
[2020-12-27] MEDS: acetaminophen 325 mg Tablet 650 MG PO (21:15)
[2020-12-27 22:00] VITALS: BP 136/89; PULSE 75; RESP 18; TEMP 36.9; O2SAT 100
[2020-12-28] MEDS: neomycin-poly-bacitracin oint 28 gm 1 APPLIC TOPICAL ×2 (02:32→08:31)
[2020-12-28 06:00] VITALS: BP 106/73; PULSE 88; RESP 16; TEMP 36.7; O2SAT 99
[2020-12-28] MEDS: ARIPiprazole 30 mg Tablet 15 MG PO (08:31)
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
[2020-12-28 15:17] VITALS: BP 106/73; PULSE 88; RESP 16; TEMP 36.7; O2SAT 99
[2020-12-28 16:51] LABS: Quest SARS-CoV-2 RNA NOT DETECTED (NOT DETECTED)
== END 2020-12-28 15:55 | disposition home or self-care (01) | DRG 885 ==
LOC: ER 13:41 → NP 13:50
PROVIDERS: Nurse Practitioner Family; Admitting Provider Psychiatry & Neurology Child & Adolescent Psychiatry; Emergency Provider Family Medicine; PCP Family Medicine; Visit Provider Psychiatry & Neurology Child & Adolescent Psychiatry
DX: F31.5 Bipolar disorder, current episode depressed, severe, with psychotic features (principal); R45.851 Suicidal ideations; F12.10 Cannabis abuse, uncomplicated; F10.10 Alcohol abuse, uncomplicated; Z91.128 Patient's intentional underdosing of medication regimen for other reason; Z81.8 Family history of other mental and behavioral disorders
CPT/HCPCS: 80053; 80306; 80307; 81001; 81025; 84443; 85025; 87426; 87635; 93005; 99285

== ENCOUNTER 2021-03-19 15:21 | Outpatient (CLI) | payer MEDICAID, SELFPAY ==
--- NOTE | 2021-03-19 | US_ITS ---
WS: [id number] ULTRASOUND EARLY TECHNIQUE: Transabdominal sonography of the pelvis was performed. Followed by transvaginal sonography to better evaluate the uterus and ovaries. CLINICAL INFORMATION: POSITIVE TEST. RULE OUT ECTOPIC LMP: 01/12/2021 Beta hCG: Unknown. COMPARISON: None. FINDINGS: UTERUS AND GESTATIONAL SAC Intrauterine gestations: Intrauterine gestational sac and yolk sac. No pole in this very early . Recommend short interval follow-up. Estimated gestational age: 6w1d Estimated delivery November 11, 2021 Yolk sac: 0.4 cm. Subchorionic hemorrhage: None. OVARIES Right ovary: Corpus luteum cyst measuring 1.7 x 1.5 x 1.4 cm Left ovary: Normal. FREE FLUID None. US/US OB <=14 wk fetus w transvag IMPRESSION: 1. Intrauterine gestational sac and yolk sac. No visualized pole in this very early . Recommend short interval follow-up 2. Estimated gestational age; 6w1d 3. Incidental corpus luteum cyst right adnexa. Normal left adnexa.
== END 2021-03-19 15:22 | disposition home or self-care (01) ==
LOC: RAD 15:23
PROVIDERS: PCP Family Medicine; Visit Provider Registered Nurse
DX: Z32.01 Encounter for pregnancy test, result positive (principal); R10.30 Lower abdominal pain, unspecified; Z3A.01 Less than 8 weeks gestation of pregnancy; N83.11 Corpus luteum cyst of right ovary
CPT/HCPCS: 76801; 76817

== ENCOUNTER 2021-03-19 23:18 | Emergency (ER) | payer MEDICAID, SELFPAY ==
[2021-03-19 23:24] VITALS: BP 131/88; PULSE 90; RESP 16; TEMP 36.6; O2SAT 99; BMI 30.9
--- NOTE | 2021-03-19 23:37 | W.ED.ABDPA2 ---
HPI - Abdominal Pain General: Chief Complaint: Abdominal Pain Stated Complaint: thinks possiable miscarriage Time Seen by Provider: 03/19/21 23:22 Source: patient Mode of arrival: ambulatory Limitations: no limitations History of Present Illness: HPI narrative: 28-year-old female states she is roughly 6 to 8 weeks states that today she has been having vaginal bleeding. States she has had to change a pad due to bleeding denies any blood clots. She had some lower abdominal cramping she rates a 4 out of 10. This is her first . Denies any vomiting or diarrhea. Denies any worsening improving factors. Associated Symptoms: Denies chills and fever(s) Related Data: Date of Last Menstrual Period: 10/24/20 Review of Systems Const: Denies: fever(s), chills, body aches or change in appetite Eyes: Denies: blurry vision or eye discomfort ENMT: Denies: throat pain or dental pain Card: Denies: chest pain Resp: Denies: dyspnea GI: Reports: abdominal pain : Reports: vaginal bleeding Musc: Denies: neck pain or back pain Skin/Breast: Denies: rash Neuro: Denies: headache(s) Psych: Denies: depression Darin/Lymph: Denies: easy bruising All/Imm: Denies: urticaria PFSH ED PFSH: Medical History (Updated 03/20/21 @ 01:24 by Wilman Ortega MD) No pertinent past medical history Social History Smoking and tobacco status: never smoked Alcohol intake: never History of recent travel: No Female Reproductive History: Date of last menstrual period: 10/24/20 Physical Exam Const: COMMON NORMALS: no acute distress, patient oriented x3 and healthy appearing HENMT: COMMON NORMALS: normocephalic and atraumatic HEAD & SCALP: normocephalic and atraumatic Eye: COMMON NORMALS: Equal, round and reactive pupils present and EOMs intact bilaterally PUPIL: Yes Equal, round and reactive pupils present Neck/C-Spine: COMMON NORMALS: full ROM and supple Chest: COMMONS NORMALS: normal inspection of the chest and normal palpation of entire chest wall Resp: COMMON NORMALS: normal respiratory effort, No retractions, No use of accessory muscles and clear to auscultation bilaterally AUSCULTATION: clear to auscultation bilaterally Cardio: COMMON NORMALS: regular rate, regular rhythm and No murmurs present (Cardio) RATE: regular rate RHYTHM: regular rhythm GI: COMMON NORMALS: Normal to inspection, nondistended, normoactive bowel sounds present, Soft to palpation, non-tender and no masses PALPATION: Yes Soft to palpation Extremity: COMMON NORMALS: normal to inspection and full ROM Neuro: COMMON NORMALS: patient oriented x3, moves all extremities and no focal motor deficits Psych: COMMON NORMALS: mental status grossly normal, Normal thought process present and cooperative THOUGHT PROCESS: Normal thought process present Skin: COMMON NORMALS: no rashes or lesions noted and no wounds GENERAL SKIN EXAM: no rashes or lesions noted Course Vital Signs: Vital signs: Vital Signs Temperature 97.8 F 03/19/21 23:24 Pulse Rate 90 03/19/21 23:24 Respiratory Rate 16 03/19/21 23:24 Blood Pressure 131/88 03/19/21 23:24 Pulse Oximetry 99 03/19/21 23:24 MDM - Abdominal Pain MDM Narrative: Medical decision making narrative: Patient presents here with threatened miscarriage she had an ultrasound this morning showed 6-week gestational sac with no definite IUP I informed her she needs to have a repeat quantitative in 48 hours. She is to return if worsening pelvic exam here showed a closed cervix with no active bleeding. Lab Data: Labs: Lab Results 03/19/21 03/19/21 03/19/21 23:50 23:50 23:50 WBC 9.5 10^3/uL 10^3/ uL (4.0-10.0) RBC 4.76 10^6/uL 10^6 /uL (4.1-5.3) Hgb 14.8 g/dL g/dL (11.5-15.3) Hct 44.5 % % (37.0-47.0) MCV 93.5 fl fl (81-99) MCH 31.1 pg pg (28.0-34.0) MCHC 33.3 g/dL g/dL (30.0-36.0) RDW 11.4 % L % (12.1-15.1) Plt Count 337 10^3/cmm 10^3 /cmm (130-400) MPV 10.3 fL fL (7.4-10.4) Neut % (Auto) 63.3 % % Lymph % (Auto) 25.7 % % [place] % (Auto) 9.7 % % Eos % (Auto) 0.5 % % Baso % (Auto) 0.6 % % Neut # (Auto) 6.01 10^3/uL 10^3 /uL (1.8-7.7) Lymph # (Auto) 2.4 10^3/uL 10^3/ uL (0.8-4.8) [place] # (Auto) 0.9 10^3/uL 10^3/ uL (0.2-0.9) Eos # (Auto) 0.1 10^3/uL 10^3/ uL (0.0-0.8) Baso # (Auto) 0.1 10^3/uL 10^3/ uL (0.0-0.1) Nucleated RBC % (a uto) 0 % % Nucleated RBCs # 0.0 /100WBC /100W BC Sodium 133 mmol/L L mmol /L (136-145) Potassium 4.1 mmol/L mmol/L (3.5-5.1) Chloride 99 mmol/L mmol/L (98-107) Carbon Dioxide 20 mmol/L L mmol/ L (22-29) Anion Gap 18.1 (5-19) BUN 16 mg/dL mg/dL (6-20) Creatinine 0.6 mg/dL mg/dL (0.5-0.9) GFR Calculation 126.2 mL/min mL/m in (90-130) Glucose 75 mg/dL mg/dL (65-115) Calculated Osmolal ity 276 mOsm/kg L mOs m/kg (285-295) Calcium 9.7 mg/dL mg/dL (8.5-10.5) Total Bilirubin 0.3 mg/dL mg/dL (0.15-1.2) AST 12 U/L U/L (0-32) ALT 17 U/L U/L (0-33) Alkaline Phosphata se 70 IU/L IU/L (35-105) Total Protein 7.4 g/dL g/dL (6.6-8.7) Albumin 4.6 g/dL g/dL (3.5-5.2) Globulin 2.8 g/dL g/dL (1.3-4.6) Lipase 19 U/L U/L (13-60) Ser , [place] 03239.00 mIU/mL m IU/mL Blood Type A Positive Rho(D) Type Positive Antibody Screen Negative Discharge Plan Discharge Patient Disposition: Home Clinical Impression: Threatened miscarriage Condition: Stable Prescriptions: No Action (DME) cam boot See Rx Instructions .Route .MEDSUPPLY Qty: 1 RF: 0 naproxen 250 mg Tablet 500 mg PO PRN RF: 0 ibuprofen 200 mg Tablet 800 mg PO PRN RF: 0 Excedrin Migraine 250-250-65 mg Tablet 2 tab PO PRN RF: 0 temazepam [Restoril] 15 mg Capsule 15 mg PO BEDTIME RF: 0 Discharge Orders: Discharge ED (Routine); Ordered 03/20/21 Ordered By: Wilman Ortega Referrals: Paulina Cedeno DO [Primary Care Provider] - 1-3 days Discharge Diet: Advance as tolerated Discharge Activity: Resume usual activity Patient Instructions: Threatened Miscarriage (ED) Coding Level of Care Code ED [employer] for [place] Fwd Exam Comprehensive
[2021-03-20 00:11] LABS: Basophils # 0.1 10^3/uL (0.0-0.1); Basophils % 0.6 %; Eosinophils # 0.1 10^3/uL (0.0-0.8); Eosinophils % 0.5 %; Hematocrit 44.5 % (37.0-47.0); Hemoglobin 14.8 g/dL (11.5-15.3); Lymphocytes # 2.4 10^3/uL (0.8-4.8); Lymphocytes % 25.7 %; Mean Corpuscular HGB Conc 33.3 g/dL (30.0-36.0); Mean Corpuscular Hemoglobin 31.1 pg (28.0-34.0); Mean Corpuscular Volume 93.5 fl (81-99); Mean Platelet Volume 10.3 fL (7.4-10.4); Monocytes # 0.9 10^3/uL (0.2-0.9); Monocytes % 9.7 %; Neutrophils # 6.01 10^3/uL (1.8-7.7); Neutrophils % 63.3 %; Nucleated Red Blood Cells % 0 %; Platelet Count 337 10^3/cmm (130-400); Red Blood Count 4.76 10^6/uL (4.1-5.3); Red Cell Distribution Width 11.4 % (12.1-15.1); White Blood Count 9.5 10^3/uL (4.0-10.0)
[2021-03-20 01:07] LABS: Alanine Aminotransferase 17 U/L (0-33); Albumin Level 4.6 g/dL (3.5-5.2); Alkaline Phosphatase 70 IU/L (35-105); Anion Gap 18.1 (5-19); Aspartate Amino Transferase 12 U/L (0-32); Blood Urea Nitrogen 16 mg/dL (6-20); Calcium 9.7 mg/dL (8.5-10.5); Carbon Dioxide 20 mmol/L (22-29); Chloride 99 mmol/L (98-107); Globulin 2.8 g/dL (1.3-4.6); Glomerular Filtration Rate 126.2 mL/min (90-130); Glucose 75 mg/dL (65-115); Lipase 19 U/L (13-60); Osmolality Calculated 276 mOsm/kg (285-295); Potassium 4.1 mmol/L (3.5-5.1); Sodium 133 mmol/L (136-145); Total Bilirubin 0.3 mg/dL (0.15-1.2); Total Protein 7.4 g/dL (6.6-8.7)
[2021-03-20 01:32] VITALS: BP 133/99; PULSE 87; RESP 20; O2SAT 100
[2021-03-20 01:35] LABS: Add Urine Microscopic? NO; Charge for UA Resulting for Rev
[2021-03-20 01:41] LABS: Bilirubin Urine Neg (Negative); Blood Urine Neg (Negative); Glucose Urine UA Norm (Normal); Ketones Urine 2+ (Negative); Leukocyte Esterase Urine Negative (Negative); Nitrate Urine Negative (Negative); Protein Urine Neg (Negative); Urine Appearance Clear (CLEAR); Urine Color Yellow (Yellow); Urobilinogen Urine Norm (Negative); pH Urine 5 (5-7)
--- NOTE | 2021-03-20 10:53 | DCPLANNER ---
research project manager had message to schedule a follow up appointment for patient with [facility]. research project manager called [facility], spoke with Davi, gave clinic patients information. research project manager was told that patients information would be printed and reviewed. Clinic will call patient with appointment information.
--- NOTE | 2021-04-10 10:04 | DCPLANNER ---
Patient had a follow up appointment scheduled with [facility] - patient did attend appointment.
== END 2021-03-20 01:34 | disposition home or self-care (01) ==
PROVIDERS: Emergency Provider Emergency Medicine; PCP Family Medicine
DX: O20.0 Threatened abortion (principal); Z3A.01 Less than 8 weeks gestation of pregnancy
CPT/HCPCS: 80053; 81003; 83690; 84702; 85025; 86850; 86900; 99283

== ENCOUNTER 2021-03-21 11:40 | Outpatient (CLI) | payer MEDICAID, SELFPAY | END 2021-03-21 11:41 | disposition home or self-care (01) | PROVIDERS: Emergency Medicine; PCP Family Medicine; Visit Provider Obstetrics & Gynecology | DX: O20.0 Threatened abortion (principal) | CPT/HCPCS: 84702 ==

== ENCOUNTER → 2021-04-03 10:49 | Outpatient (BNVA) | payer SELFPAY | PROVIDERS: PCP Family Medicine; Visit Provider Nurse Practitioner Women's Health | DX: Z34.01 Encounter for supervision of normal first pregnancy, first trimester (principal); F31.9 Bipolar disorder, unspecified | CPT/HCPCS: 81000 ==

== ENCOUNTER → 2021-04-21 08:53 | Outpatient (BNVA) | payer MEDICAID, SELFPAY | PROVIDERS: PCP Family Medicine; Visit Provider Obstetrics & Gynecology | DX: O03.9 Complete or unspecified spontaneous abortion without complication (principal) | CPT/HCPCS: 81000 ==

== ENCOUNTER → 2021-04-28 11:29 | Outpatient (BNVA) | payer MEDICAID, SELFPAY | PROVIDERS: PCP Family Medicine; Visit Provider Obstetrics & Gynecology | DX: O02.1 Missed abortion (principal) | CPT/HCPCS: 84702 ==

== ENCOUNTER → 2021-05-02 10:33 | Outpatient (BNVA) | payer MEDICAID, SELFPAY | PROVIDERS: PCP Family Medicine; Visit Provider Obstetrics & Gynecology | DX: O02.1 Missed abortion (principal); Z20.822 Contact with and (suspected) exposure to COVID-19 | CPT/HCPCS: 84702; 87635 ==